=== PATIENT | female | born 1930 | race Caucasian/White ===

== ENCOUNTER 2016-10-06 21:48 | Emergency (ER) | payer MEDICARE, OTHER ==
[2016-10-06] MEDS ORDERED: Sodium Chloride 0.9% 10 ML Syringe FLUSH PRN (21:58)
--- NOTE | 2016-10-06 22:00 | EDM.PDOC ---
ED HPI GENERAL MEDICAL PROBLEM - General Chief Complaint: General Stated Complaint: [facility] Time Seen by Provider: 10/06/16 21:49 Source of Information: Reports: Patient History Limitations: Reports: No limitations - History of Present Illness INITIAL COMMENTS - FREE TEXT/NARRATIVE: Patient presents via the [place] ambulance service for evaluation and treatment of dizziness. Patient reports that she was sitting on the toilet. She said that she got up and felt extremely dizzy. She states that she did fall and hit her head. She did not pass out or lose consciousness. She reports that the dizziness has improved since this occurred but she still continues to have some dizziness. She denies any chest pain, shortness of breath, nausea, vomiting, diarrhea, melena, hematochezia, fevers, chills or cough. She is an 81mg aspirin daily. She denies any neck pain. Patient reports that she has been ill with flulike symptoms over the last week. She was seen by her primary care provider. She was negative for influenza. She reports that she has not been eating as much due to her symptoms. - Related Data Allergies Allergy/AdvReac Type Severity Reaction Status Date / Time No Known Allergies Allergy Verified 10/06/16 21:57 Home Meds: Home Meds Aspirin 81 mg PO DAILY 12/30/15 [History] Atenolol 50 mg PO DAILY 12/30/15 [History] Calcium Carbonate [Calcium] 600 mg PO DAILY 12/30/15 [History] Isosorbide Mononitrate [Imdur] 60 mg PO DAILY 12/30/15 [History] Multivitamin [Multivitamins] 1 each PO DAILY 12/30/15 [History] Omeprazole 20 mg PO DAILY 12/30/15 [History] Simvastatin [Zocor] 5 mg PO BEDTIME 12/30/15 [History] Triamterene/Hydrochlorothiazid [Triamterene-HCTZ 37.5-25 MG] 1 tab PO DAILY 05/06 [History] Allopurinol [Zyloprim] 100 mg PO DAILY #30 tablet 01/01/16 [Rx] Cephalexin [Keflex] 500 mg PO QID #20 cap 01/01/16 [Rx] Diltiazem [Cardizem] 60 mg PO Q12HR #60 tablet 01/01/16 [Rx] Saccharomyces Boulardii [Probiotic] 250 mg PO BID #14 capsule 01/01/16 [Rx] Past Medical History Cardiovascular History: Reports: Arrhythmia, High cholesterol, Hypertension Gastrointestinal History: Reports: GERD Genitourinary History: Reports: Chronic renal insuffiency Oncologic (Cancer) History: Reports: Other (see below) (skin) Other Oncologic History: skin cancer Dermatologic History: Reports: Other (see below) Other Dermatologic History: skin cancer - Past Surgical History HEENT Surgical History: Reports: Cataract surgery, Tonsillectomy Social & Family History - Family History Family Medical History: Unobtainable - Tobacco Use Smoking Status *Q: Never Smoker Second Hand Smoke Exposure: No - Recreational Drug Use Recreational Drug Use: No ED ROS GENERAL - Review of Systems Review Of Systems: See Below Constitutional: Reports: decreased appetite. Denies: fever Respiratory: Denies: Shortness of Breath, Cough Cardiovascular: Denies: Chest pain, Syncope GI/Abdominal: Denies: Abdominal pain, Diarrhea, Hematochezia, Melena, Nausea, Vomiting Musculoskeletal: Denies: neck pain Neurological: Reports: Dizziness. Denies: Headache, Syncope ED EXAM, GENERAL - Physical Exam Exam: See Below Exam Limited By: No limitations General Appearance: alert, WD/WN, no apparent distress Respiratory/Chest: no respiratory distress, lungs clear, normal breath sounds Cardiovascular: normal peripheral pulses, regular rate, rhythm, no murmur Peripheral Pulses: 2+: radial (L), radial (R) Neurological: alert, oriented, normal cognition Psychiatric: normal affect, normal mood Skin Exam: Warm, Dry, Normal color EKG INTERPRETATION EKG Date: 10/06/16 Time: 22:10 Rhythm: NSR Rate (beats/min): 59 [place]: LAD-left axis deviation P-wave: present QRS: normal ST-T: normal Comparison: no change EKG Interpretation Comments: NSR at 59 bpm. No acute changes. Reviewed by myself and Dr. Celis. Course - Vital Signs Last Recorded V/S: Last Vital Signs Temp 36.4 C 10/06/16 21:53 Pulse 60 10/07/16 02:23 Resp 16 10/07/16 02:23 BP 121/45 L 10/07/16 02:23 Pulse Ox 99 10/07/16 02:23 Orthostatic Blood Pressure [ 76/48 Standing] Orthostatic Blood Pressure [ 106/55 Sitting] Orthostatic Blood Pressure [ 120/51 Supine] - Orders/Labs/Meds Orders: Active Orders 24 hr Category Date Time Status EKG 12 Lead [EKG Documentation Completion] [RC] STAT Care 10/06/16 21:58 Active Orthostatic Vital Signs [RC] ASDIRECTED Care 10/06/16 21:58 Active Peripheral IV Care [RC] . DIRECTED Care 10/06/16 21:58 Active Chest 1V Frontal [CR] Stat Exams 10/06/16 21:58 Taken Head wo Cont [CT] Stat Exams 10/06/16 21:58 Taken Peripheral IV Insertion Adult [OM.PC] Routine Oth 10/06/16 21:58 Ordered Labs: Laboratory Tests 10/06/16 10/06/16 10/06/16 Range/Units 22:11 22:11 22:11 WBC 8.88 (3.98-10.04) K/mm3 RBC 3.38 L (3.98-5.22) M/mm3 Hgb 10.7 L (11.2-15.7) gm/L Hct 31.8 L (34.1-44.9) % MCV 94.1 (79.4-94.8) fl MCH 31.7 (25.6-32.2) pg MCHC 33.6 (32.2-35.5) g/dl RDW Std Deviation 41.5 (36.4-46.3) fL Plt Count 656 H (182-369) K/mm3 MPV 8.8 L (9.4-12.3) fl Neut % (Auto) 56.8 (34.0-71.1) % Lymph % (Auto) 27.3 (19.3-51.7) % [place] % (Auto) 13.4 H (4.7-12.5) % Eos % (Auto) 1.2 (0.7-5.8) Baso % (Auto) 0.2 (0.1-1.2) % Neut # 5.04 (1.56-6.13) K/mm3 Lymph # 2.42 (1.18-3.74) K/mm3 [place] # 1.19 H (0.24-0.36) K/mm3 Eos # 0.11 (0.04-0.36) K/mm3 Baso # 0.02 (0.01-0.08) K/mm3 Manual Slide Review Abnormal smear Sodium 135 L (136-145) mEq/L Potassium 3.7 (3.5-5.1) mEq/L Chloride 97 L (98-107) mEq/L Carbon Dioxide 29 (21-32) mEq/L Anion Gap 12.7 (5-15) BUN 26 H (7-18) mg/dL Creatinine 1.6 H (0.55-1.02) mg/dL Est Cr Clr Drug Dosing 21.79 mL/min Estimated GFR (MDRD) 31 (>60) mL/min BUN/Creatinine Ratio 16.3 (14-18) Glucose 125 H (83-115) mg/dL Calcium 8.8 (8.5-10.1) mg/dL Total Bilirubin 0.5 (0.2-1.0) mg/dL AST 36 (15-37) U/L ALT 45 (14-59) U/L Alkaline Phosphatase 252 H (46-116) U/L Troponin I < 0.017 (0.00-0.056) ng/mL B-Natriuretic Peptide 91 (0-100) pg/mL Total Protein 6.8 (6.4-8.2) g/dl Albumin 2.5 L (3.4-5.0) g/dl Globulin 4.3 gm/dL Albumin/Globulin Ratio 0.6 L (1-2) Urine Color (Yellow) Urine Appearance (Clear) Urine pH (5.0-8.0) Ur Specific [place] (1.005-1.030) Urine Protein (Negative) Urine Glucose (UA) (Negative) Urine Ketones (Negative) Urine Occult Blood (Negative) Urine Nitrite (Negative) Urine Bilirubin (Negative) Urine Urobilinogen (0.2-1.0) Ur Leukocyte Esterase (Negative) Urine RBC (0-5) /hpf Urine WBC (0-5) /hpf Urine WBC Clumps (NOT SEEN) /hpf Ur Epithelial Cells (0-5) /hpf Ur Transition Epith Cell (0-5) Ur Renal Epithelial Cell (0-5) /hpf Urine Bacteria (FEW) /hpf Hyaline Casts (0-5) /lpf Urine Mucus (FEW) /hpf Urine Yeast (NOT SEEN) // Range/Units 23:21 WBC (3.98-10.04) K/mm3 RBC (3.98-5.22) M/mm3 Hgb (11.2-15.7) gm/L Hct (34.1-44.9) % MCV (79.4-94.8) fl MCH (25.6-32.2) pg MCHC (32.2-35.5) g/dl RDW Std Deviation (36.4-46.3) fL Plt Count (182-369) K/mm3 MPV (9.4-12.3) fl Neut % (Auto) (34.0-71.1) % Lymph % (Auto) (19.3-51.7) % [place] % (Auto) (4.7-12.5) % Eos % (Auto) (0.7-5.8) Baso % (Auto) (0.1-1.2) % Neut # (1.56-6.13) K/mm3 Lymph # (1.18-3.74) K/mm3 [place] # (0.24-0.36) K/mm3 Eos # (0.04-0.36) K/mm3 Baso # (0.01-0.08) K/mm3 Manual Slide Review Sodium (136-145) mEq/L Potassium (3.5-5.1) mEq/L Chloride (98-107) mEq/L Carbon Dioxide (21-32) mEq/L Anion Gap (5-15) BUN (7-18) mg/dL Creatinine (0.55-1.02) mg/dL Est Cr Clr Drug Dosing mL/min Estimated GFR (MDRD) (>60) mL/min BUN/Creatinine Ratio (14-18) Glucose (83-115) mg/dL Calcium (8.5-10.1) mg/dL Total Bilirubin (0.2-1.0) mg/dL AST (15-37) U/L ALT (14-59) U/L Alkaline Phosphatase (46-116) U/L Troponin I (0.00-0.056) ng/mL B-Natriuretic Peptide (0-100) pg/mL Total Protein (6.4-8.2) g/dl Albumin (3.4-5.0) g/dl Globulin gm/dL Albumin/Globulin Ratio (1-2) Urine Color Yellow (Yellow) Urine Appearance Clear (Clear) Urine pH 6.0 (5.0-8.0) Ur Specific [place] 1.015 (1.005-1.030) Urine Protein Negative (Negative) Urine Glucose (UA) Negative (Negative) Urine Ketones Negative (Negative) Urine Occult Blood Negative (Negative) Urine Nitrite Negative (Negative) Urine Bilirubin Negative (Negative) Urine Urobilinogen 0.2 (0.2-1.0) Ur Leukocyte Esterase Negative (Negative) Urine RBC 0-5 (0-5) /hpf Urine WBC 0-5 (0-5) /hpf Urine WBC Clumps Not seen (NOT SEEN) /hpf Ur Epithelial Cells 10-20 H (0-5) /hpf Ur Transition Epith Cell 0-5 (0-5) Ur Renal Epithelial Cell 0-5 (0-5) /hpf Urine Bacteria Rare (FEW) /hpf Hyaline Casts 0-5 (0-5) /lpf Urine Mucus Not seen (FEW) /hpf Urine Yeast Not seen (NOT SEEN) Meds: Medications Discontinued Medications Generic Name Dose Route Start Last Admin Trade Name Freq PRN Reason Stop Dose Admin Sodium Chloride 500 mls @ 999 mls/hr 10/06/16 22:01 10/06/16 22:47 Normal Saline IV 10/06/16 22:31 999 mls/hr ONETIME ONE Administration Sodium Chloride 10 ml 10/06/16 21:58 10/06/16 22:48 Saline Flush FLUSH 10 ml ASDIRECTED PRN Administration Keep Vein Open - Radiology Interpretation Free Text/Narrative:: head CT without contrast impression per [facility]: No acute findings. Chest 1 view shows no acute intrathoracic process. - Re-Assessments/Exams Free Text/Narrative Re-Assessment/Exam: 10/07/16 01:00 Labs returned. WBC is 8.88, hgb is 10/7 and plts are 656 Sodium i8s 135, potassium is 3.7 and chloride is 97. Glucose is 125 AST is 36, ALt is 45 and alk phos is 252 Trop is within normal limits at <0.017 BNP is 91 Ua is negative for blood, leuks, nitrites, glucose or ketones. I reviewed the labs, ekg and imaging results with the patient. I feel she was likely orthostatic which caused the dizziness. I will have her follow-up with PCP this week. Patient is feeling well and is anxious to go home. Will discharge home at this time. Discharge instructions as documented. Departure - Departure Time of Disposition: 01:03 Disposition: Home, Self-Care 01 Condition: good Clinical Impression: Dehydration Instructions: Dehydration, Elderly, [id number] Referrals: Trinity Cisneros MD [Primary Care Provider] - Forms: ED Department Discharge Additional Instructions: Followup with Dr. Cisneros this week. Drink plenty of fluids. [place] diet tomorrow. Recommendations the bland to include crackers, breda, toast , rice, bananas, supine, et cetera. may advance to a normal diet as tolerated.- I recommend Small frequent meals. Please return to the ER should your symptoms change or worsen. - My Orders Last 24 Hours: My Active Orders 10/06/16 21:58 EKG 12 Lead [EKG Documentation Completion] [RC] STAT Orthostatic Vital Signs [RC] ASDIRECTED Peripheral IV Care [RC] . DIRECTED Chest 1V Frontal [CR] Stat Head wo Cont [CT] Stat Peripheral IV Insertion Adult [OM.PC] Routine - Assessment/Plan Last 24 Hours: My Active Orders 10/06/16 21:58 EKG 12 Lead [EKG Documentation Completion] [RC] STAT Orthostatic Vital Signs [RC] ASDIRECTED Peripheral IV Care [RC] . DIRECTED Chest 1V Frontal [CR] Stat Head wo Cont [CT] Stat Peripheral IV Insertion Adult [OM.PC] Routine
[2016-10-06] MEDS ORDERED: Sodium Chloride 0.9% 500 ML IV ONE (22:01)
[2016-10-07 02:25] VITALS: BP 121/45
--- NOTE | 2016-10-08 07:59 | CR ---
Chest: Portable view of the chest was obtained. Comparison: Previous chest x-ray of 11/17/11. Heart size and mediastinum are normal. Lungs are clear. Bony structures are grossly intact. Impression: 1. Nothing acute is identified on portable chest x-ray. Diagnostic code #1
--- NOTE | 2016-10-08 07:59 | CT ---
Head CT Technique: Multiple axial sections through the brain were obtained. Intravenous contrast was not utilized. Comparison: Previous head CT study of 12/30/15 is available. Findings: Ventricles along with basal cisterns and sulci over the convexities are mildly prominent. Minimal diminished density noted within the periventricular white matter compatible with small vessel ischemic demyelination change. No other abnormal parenchymal densities are seen. No evidence of intracranial hemorrhage. No midline shift or mass effect is seen. Bone window settings were reviewed which show the visualized paranasal sinuses and mastoid sinuses to appear clear. Middle ear cavities are clear. No acute calvarial abnormality is seen. Impression: 1. Mild senescent change as noted above. No acute intracranial abnormality is identified. No significant change seen from prior head CT exam. Diagnostic code #2 Agree with preliminary report issued by [facility] (preliminary [facility] report dictated on 10/07/16, 1:06 AM Central Time)
== END 2016-10-07 01:30 | disposition home or self-care (01) ==
LOC: JD.ED 21:48
DX: E86.0 Dehydration (principal); I49.9 Cardiac arrhythmia, unspecified; E78.00 Pure hypercholesterolemia, unspecified; K21.9 Gastro-esophageal reflux disease without esophagitis; I12.9 Hypertensive chronic kidney disease with stage 1 through stage 4 chronic kidney disease, or unspecified chronic kidney disease; N18.9 Chronic kidney disease, unspecified; Z85.828 Personal history of other malignant neoplasm of skin; Z79.82 Long term (current) use of aspirin; Z79.899 Other long term (current) drug therapy
CPT/HCPCS: 36415; 70450; 71010; 80053; 81001; 83880; 84484; 85025; 93005; 96360; 96361; 99285; J7040; J7050; 99284

== ENCOUNTER 2016-10-09 09:04 | Inpatient (IN) | payer MEDICARE, OTHER ==
[2016-10-09] MEDS ORDERED: Metoclopramide 10 MG/2 ML SDV IVPUSH ONE (09:44)
[2016-10-09] MEDS ORDERED: Sodium Chloride 0.9% 10 ML Syringe FLUSH PRN (09:44)
[2016-10-09] MEDS ORDERED: Sodium Chloride 0.9% 1,000 ML IV SCH (09:45)
--- NOTE | 2016-10-09 10:56 | EDM.PDOC ---
ED HPI DIZZINESS - General Chief Complaint: Syncope Stated Complaint: [facility] Time Seen by Provider: 10/09/16 09:24 Source of Information: Reports: Patient, EMS, Family Exam Limitations: Reports: No limitations - History of Present Illness INITIAL COMMENTS - FREE TEXT/NARRATIVE: The patient presents with dizziness, nausea and vomiting. The patient was her on Saturday for syncope. Her work up looked good. This morning she could not get up out of bed because she was dizzy. She says everything was spinning and she vomited once before she arrived. She has no pain such as headache, chest pain, or abdominal pain. She was more confused then normal this morning. She was a confused about the date. She says she cannot lift her head up off of the pillow because she will get so dizzy. She has generalized weakness. She has no dysuria. Timing/Duration: Reports: Day(s): Baseline Function: Reports: ambulatory Quality: Reports: spinning Severity: severe Improves With: Reports: laying down, stationary position Worsens With: Reports: sitting Context, Dizziness: Denies: recent infection, recent trauma, new medications Associated Symptoms: Denies: hearing loss - Related Data Allergies/ADRs: Allergies Allergy/AdvReac Type Severity Reaction Status Date / Time atorvastatin [From Lipitor] Allergy Cannot Verified 10/09/16 09:20 Remember lisinopril Allergy Cannot Verified 10/09/16 09:20 Remember Home Meds: Home Meds Aspirin 81 mg PO DAILY 12/30/15 [History] Atenolol 50 mg PO DAILY 12/30/15 [History] Isosorbide Mononitrate [Imdur] 60 mg PO DAILY 12/30/15 [History] Omeprazole 20 mg PO DAILY 12/30/15 [History] Simvastatin [Zocor] 5 mg PO BEDTIME 12/30/15 [History] Triamterene/Hydrochlorothiazid [Triamterene-HCTZ 37.5-25 MG] 25 - 37.5 mg PO DAILY 12/30/15 [History] Allopurinol [Zyloprim] 100 mg PO DAILY #30 tablet 01/01/16 [Rx] Diltiazem [Cardizem] 60 mg PO Q12HR #60 tablet 01/01/16 [Rx] Acetaminophen 500 - 1,000 mg PO Q4H PRN 10/09/16 [History] Calcium Carb/D3/Magnesium/Zinc [Adelfo Mag Zinc + D3] 1 tab PO DAILY 10/09/16 [ History] Calcium Carbonate/Vitamin D3 [Calcium 600 + Vit D 400 Softgl] 2 tab PO DAILY [History] Cranberry Conc/Ascorbic Acid [Cranberry Urinary Comfort Sfgl] 1 tab PO DAILY [History] Fluticasone Propionate [Flovent HFA 44 MCG] 2 puff INH DAILY PRN 10/09/16 [ History] Multivits,Th w-Fe,Other Min [Complete Multivitamin] 1 tab PO DAILY 10/09/16 [ History] Potassium Chloride [Klor-Con Sprinkle] 10 meq PO DAILY 10/09/16 [History] Past Medical History Cardiovascular History: Reports: Arrhythmia, High cholesterol, Hypertension Gastrointestinal History: Reports: GERD Genitourinary History: Reports: Chronic renal insuffiency [employer] History: Reports: Musculoskeletal History: Reports: Fracture Neurological History: Reports: Headaches, chronic, Other (see below) Other Neuro History: many yrs ago had H/A's. Endocrine/Metabolic History: Reports: Other (see below) Other Endocrine/Metabolic History: daughter states that pt is "pre-diabetic." Oncologic (Cancer) History: Reports: Basal cell carcinoma, Other (see below) Other Oncologic History: skin cancer Dermatologic History: Reports: Other (see below) Other Dermatologic History: skin cancer - Infectious Disease History Infectious Disease History: Reports: Measles - Past Surgical History HEENT Surgical History: Reports: Cataract surgery, Tonsillectomy Social & Family History - Family History Family Medical History: Unobtainable - Tobacco Use Smoking Status *Q: Never Smoker Second Hand Smoke Exposure: No - Caffeine Use Caffeine Use: Reports: Soda - Recreational Drug Use Recreational Drug Use: No ED ROS GENERAL - Review of Systems Review Of Systems: See Below Constitutional: Reports: no symptoms HEENT: Reports: No symptoms Respiratory: Reports: No Symptoms Cardiovascular: Reports: No symptoms Endocrine: Reports: no symptoms GI/Abdominal: Reports: Nausea, Vomiting. Denies: Abdominal pain : Reports: no symptoms Musculoskeletal: Reports: no symptoms Skin: Reports: no symptoms Neurological: Reports: Dizziness ED EXAM, DIZZINESS - Physical Exam Exam: See Below Exam Limited By: No limitations General Appearance: alert, no apparent distress Eye Exam: right eye: nystagmus, bilateral eye: EOMI, PERRL Nystagmus: worsens with head to R Ears: normal external exam Nose: normal inspection, nasal flaring Head Exam: atraumatic, normocephalic Vertigo: worsens with head to R Neck: normal inspection Respiratory/Chest: no respiratory distress, lungs clear, normal breath sounds Cardiovascular: regular rate, rhythm, no edema, no murmur GI/Abdominal: soft, non tender, no organomegaly, no mass Neurological: alert, normal mood/affect, no motor/sensory deficits, oriented x 3 , other (Nystagmus to the right) Extremities: normal inspection EKG INTERPRETATION EKG Date: 10/09/16 Time: 09:57 Rhythm: NSR Rate (beats/min): 66 [place]: LAD-left axis deviation P-wave: present QRS: normal ST-T: other (Flattened T waves in the anterior leads) QT: normal Course - Vital Signs Last Recorded V/S: Last Vital Signs Temp 97.2 F 10/09/16 09:05 Pulse 68 10/09/16 09:05 Resp 13 10/09/16 09:05 BP 151/54 H 10/09/16 09:05 Pulse Ox 100 10/09/16 09:05 - Orders/Labs/Meds Orders: Active Orders 24 hr Category Date Time Status Cardiac Monitoring [RC] . DIRECTED Care 10/09/16 09:44 Active EKG Documentation Completion [RC] STAT Care 10/09/16 09:45 Active Peripheral IV Care [RC] . DIRECTED Care 10/09/16 09:44 Active Sodium Chloride 0.9% [Normal Saline] 1,000 ml Med 10/09/16 09:45 Active IV ASDIRECTED Sodium Chloride 0.9% [Saline Flush] Med 10/09/16 09:44 Active 10 ml FLUSH ASDIRECTED PRN ED Antiemetic Medication Reflex [OM.PC] Stat Oth 10/09/16 09:45 Ordered Peripheral IV Insertion Adult [OM.PC] Stat Oth 10/09/16 09:44 Ordered Medication Orders Sodium Chloride (Normal Saline) 1,000 mls @ 150 mls/hr IV ASDIRECTED ARJUN Last Admin: 10/09/16 10:02 Dose: 150 mls/hr Sodium Chloride (Saline Flush) 10 ml FLUSH ASDIRECTED PRN PRN Reason: Keep Vein Open Last Admin: 10/09/16 10:02 Dose: 10 ml Labs: Laboratory Tests 10/09/16 10/09/16 10/09/16 Range/Units 09:57 10:25 10:32 WBC 7.83 (3.98-10.04) K/mm3 RBC 3.44 L (3.98-5.22) M/mm3 Hgb 10.9 L (11.2-15.7) gm/L Hct 32.6 L (34.1-44.9) % MCV 94.8 (79.4-94.8) fl MCH 31.7 (25.6-32.2) pg MCHC 33.4 (32.2-35.5) g/dl RDW Std Deviation 43.1 (36.4-46.3) fL Plt Count 731 H (182-369) K/mm3 MPV 9.1 L (9.4-12.3) fl Neut % (Auto) 66.9 (34.0-71.1) % Lymph % (Auto) 22.1 (19.3-51.7) % [place] % (Auto) 9.2 (4.7-12.5) % Eos % (Auto) 0.8 (0.7-5.8) Baso % (Auto) 0.5 (0.1-1.2) % Neut # 5.24 (1.56-6.13) K/mm3 Lymph # 1.73 (1.18-3.74) K/mm3 [place] # 0.72 H (0.24-0.36) K/mm3 Eos # 0.06 (0.04-0.36) K/mm3 Baso # 0.04 (0.01-0.08) K/mm3 Manual Slide Review Abnormal smear Sodium 136 (136-145) mEq/L Potassium 4.3 (3.5-5.1) mEq/L Chloride 101 (98-107) mEq/L Carbon Dioxide 25 (21-32) mEq/L Anion Gap 14.3 (5-15) BUN 22 H (7-18) mg/dL Creatinine 1.4 H (0.55-1.02) mg/dL Est Cr Clr Drug Dosing 25.95 mL/min Estimated GFR (MDRD) 36 (>60) mL/min BUN/Creatinine Ratio 15.7 (14-18) Glucose 117 H (83-115) mg/dL Calcium 9.0 (8.5-10.1) mg/dL Total Bilirubin 0.4 (0.2-1.0) mg/dL AST 42 H (15-37) U/L ALT 35 (14-59) U/L Alkaline Phosphatase 214 H (46-116) U/L Troponin I < 0.017 (0.00-0.056) ng/mL Total Protein 6.6 (6.4-8.2) g/dl Albumin 2.6 L (3.4-5.0) g/dl Globulin 4.0 gm/dL Albumin/Globulin Ratio 0.7 L (1-2) Urine Color Yellow (Yellow) Urine Appearance Clear (Clear) Urine pH 7.5 (5.0-8.0) Ur Specific [place] 1.020 (1.005-1.030) Urine Protein Negative (Negative) Urine Glucose (UA) Negative (Negative) Urine Ketones Negative (Negative) Urine Occult Blood Negative (Negative) Urine Nitrite Negative (Negative) Urine Bilirubin Negative (Negative) Urine Urobilinogen 0.2 (0.2-1.0) Ur Leukocyte Esterase Negative (Negative) Urine RBC 0-5 (0-5) /hpf Urine WBC Not seen (0-5) /hpf Ur Epithelial Cells 0-5 (0-5) /hpf Urine Bacteria Not seen (FEW) /hpf Urine Mucus Not seen (FEW) /hpf Meds: Medications Generic Name Dose Route Start Last Admin Trade Name Freq PRN Reason Stop Dose Admin Sodium Chloride 1,000 mls @ 150 mls/hr 10/09/16 09:45 10/09/16 10:02 Normal Saline IV 150 mls/hr ASDIRECTED ARJUN Administration Sodium Chloride 10 ml 10/09/16 09:44 10/09/16 10:02 Saline Flush FLUSH 10 ml ASDIRECTED PRN Administration Keep Vein Open Discontinued Medications Generic Name Dose Route Start Last Admin Trade Name Freq PRN Reason Stop Dose Admin Meclizine HCl 25 mg 10/09/16 09:46 10/09/16 10:33 Antivert PO 10/09/16 09:47 25 mg ONETIME ONE Administration Metoclopramide HCl 10 mg 10/09/16 09:44 10/09/16 10:00 Reglan IVPUSH 10/09/16 09:45 10 mg ONETIME ONE Administration - Re-Assessments/Exams Free Text/Narrative Re-Assessment/Exam: 10/09/16 11:01 I ordered an IV NS at 200mL/hr, reglan 10mg IV, antivert 50mg by mouth, labs, EKG, and CT of her head. Her EKG shows a NSR with no acute changes. 10/09/16 13:[address] looks good. Her labs look good. She feels a little better. I feel she needs to be admitted. I called Dr De León and he agreed to the admission. Departure - Departure Time of Disposition: 13:45 Disposition: Admitted As Inpatient 66 Condition: fair Clinical Impression: Vertigo, Generalized weakness, Renal insufficiency Nausea and vomiting Qualifiers: Vomiting type: unspecified Vomiting Intractability: non-intractable Qualified Code(s): R11.2 - Nausea with vomiting, unspecified - My Orders Last 24 Hours: My Active Orders 10/09/16 09:44 Cardiac Monitoring [RC] . DIRECTED Peripheral IV Care [RC] . DIRECTED Sodium Chloride 0.9% [Saline Flush] 10 ml FLUSH ASDIRECTED PRN Peripheral IV Insertion Adult [OM.PC] Stat 10/09/16 09:45 EKG Documentation Completion [RC] STAT Sodium Chloride 0.9% [Normal Saline] 1,000 ml IV ASDIRECTED ED Antiemetic Medication Reflex [OM.PC] Stat - Assessment/Plan Last 24 Hours: My Active Orders 10/09/16 09:44 Cardiac Monitoring [RC] . DIRECTED Peripheral IV Care [RC] . DIRECTED Sodium Chloride 0.9% [Saline Flush] 10 ml FLUSH ASDIRECTED PRN Peripheral IV Insertion Adult [OM.PC] Stat 10/09/16 09:45 EKG Documentation Completion [RC] STAT Sodium Chloride 0.9% [Normal Saline] 1,000 ml IV ASDIRECTED ED Antiemetic Medication Reflex [OM.PC] Stat
--- NOTE | 2016-10-09 11:07 | CT ---
Head CT Technique: Multiple axial sections through the brain were obtained. Intravenous contrast was not utilized. Comparison: Previous head CT study of 10/06/16. Findings: Ventricles along with basal cisterns and sulci over the convexities are mildly prominent. Mild diminished density noted within the periventricular white matter compatible with small vessel ischemic demyelination change. No other abnormal parenchymal densities are seen. No evidence of intracranial hemorrhage. No midline shift or mass effect is seen. Bone window settings were reviewed which show no significant mucosal thickening within the visualized paranasal sinuses. Visualized mastoid sinuses are clear. Middle ear cavities are clear. No acute calvarial abnormality is appreciated. Impression: 1. Senescent change as described above. 2. Nothing acute identified on noncontrast head CT study. No significant change from prior head CT study. Diagnostic code #2
--- NOTE | 2016-10-09 14:32 | PCM.HP ---
H&P History of Present Illness - General Date of Service: 10/09/16 Admit Problem/Dx: Admission Diagnosis/Problem Admission Diagnosis/Problem Vertigo Source of Information: Patient, Family, Old records, Provider History Limitations: Reports: No limitations - History of Present Illness Initial Comments - Free Text/Narative: This is an 86 yo elderly white female with past medical hx of Arrhythmia, HLD, HTN, GERD, CKD Stage 3, Chronic Headaches and Pre-diabetes who comes in with complaints of dizziness (room spinning) associated with nausea , vomiting, and imbalance. She was initially seen on Saturday for syncopal episode with benign work up. Patient symptom started this am and could not get out of bed. She also could not lift her head off the pillow due to symptomatology. Patient reports no previous hx in the past. She reports no new ENT issues. She denies being diabetic. She further denies any recent Viral Illness or systemic infection. Her initial work up in ED shows a CBC remarkable for Hgb 10.9. Her chemistry is remarkable for BUN 22, Cr 1.4, BS 117, AST 42, Alk Phos 214, and Albumin 2.6. Her Head CT scan shows no acute abnormal findings. EKG is benign. Patient was referred to me for Vertigo management. She is full code. - Related Data Allergies/Adverse Reactions: Allergies Allergy/AdvReac Type Severity Reaction Status Date / Time atorvastatin [From Lipitor] Allergy Cannot Verified 10/09/16 09:20 Remember lisinopril Allergy Cannot Verified 10/09/16 09:20 Remember Home Medications: Home Meds Aspirin 81 mg PO DAILY 12/30/15 [History] Atenolol 50 mg PO DAILY 12/30/15 [History] Isosorbide Mononitrate [Imdur] 60 mg PO DAILY 12/30/15 [History] Omeprazole 20 mg PO DAILY 12/30/15 [History] Simvastatin [Zocor] 5 mg PO BEDTIME 12/30/15 [History] Triamterene/Hydrochlorothiazid [Triamterene-HCTZ 37.5-25 MG] 1 tab PO DAILY 05/06 [History] Allopurinol [Zyloprim] 100 mg PO DAILY #30 tablet 01/01/16 [Rx] Diltiazem [Cardizem] 60 mg PO Q12HR #60 tablet 01/01/16 [Rx] Acetaminophen 500 mg PO Q4H PRN 10/09/16 [History] Calcium Carb/D3/Magnesium/Zinc [Adelfo Mag Zinc + D3] 1 tab PO DAILY 10/09/16 [ History] Cranberry Conc/Ascorbic Acid [Cranberry Urinary Comfort Sfgl] 1 tab PO DAILY [History] Fluticasone Propionate [Flovent HFA 44 MCG] 2 puff INH DAILY PRN 10/09/16 [ History] Multivits,Th w-Fe,Other Min [Complete Multivitamin] 1 tab PO DAILY 10/09/16 [ History] Potassium Chloride [Klor-Con Sprinkle] 10 meq PO DAILY 10/09/16 [History] Past Medical History Cardiovascular History: Reports: Arrhythmia, High cholesterol, Hypertension Gastrointestinal History: Reports: GERD Genitourinary History: Reports: Chronic renal insuffiency [employer] History: Reports: Musculoskeletal History: Reports: Fracture Neurological History: Reports: Headaches, chronic, Other (see below) Other Neuro History: many yrs ago had H/A's. Endocrine/Metabolic History: Reports: Other (see below) Other Endocrine/Metabolic History: daughter states that pt is "pre-diabetic." Oncologic (Cancer) History: Reports: Basal cell carcinoma, Other (see below) Other Oncologic History: skin cancer Dermatologic History: Reports: Other (see below) Other Dermatologic History: skin cancer - Infectious Disease History Infectious Disease History: Reports: Measles - Past Surgical History HEENT Surgical History: Reports: Cataract surgery, Tonsillectomy Social & Family History - Family History Family Medical History: Unobtainable - Tobacco Use Smoking Status *Q: Never Smoker Second Hand Smoke Exposure: No - Caffeine Use Caffeine Use: Reports: Soda - Recreational Drug Use Recreational Drug Use: No H&P Review of Systems - Review of Systems: Review Of Systems: See Below General: Denies: fever, chills, malaise, weakness, fatigue HEENT: Reports: no symptoms Pulmonary: Denies: Shortness of Breath Cardiovascular: Denies: chest pain, palpitations, dyspnea on exertion, lightheadedness Gastrointestinal: Reports: Nausea, Vomiting. Denies: Abdominal pain Genitourinary: Reports: no symptoms Musculoskeletal: Reports: no symptoms Skin: Denies: jaundice, erythema, wound Psychiatric: Denies: confusion, depression, anxiety, hallucinations, suicidal ideation Neurological: Reports: Dizziness Hematologic/Lymphatic: Reports: no symptoms Immunologic: Reports: no symptoms Exam - Exam Exam: See Below - Vital Signs Vital Signs: Last Vital Signs Temp 36.2 C 10/09/16 09:05 Pulse 68 10/09/16 09:05 Resp 13 10/09/16 09:05 BP 151/54 H 10/09/16 09:05 Pulse Ox 100 10/09/16 09:05 Weight: 72.121 kg - Exam General: alert, oriented, cooperative, mild distress HEENT: Conjunctiva clear, Hearing intact, Mucosa moist & pink, Nares patent, Normal nasal septum, Posterior pharynx clear, Other (nystagmus), PERRLA. No: EOMI Neck: supple, trachea midline, 2+ carotid pulse wo bruit, full range of motion Lungs: Clear to auscultation, Normal respiratory effort, Decreased breath sounds Cardiovascular: regular rate, regular rhythm, normal S1 Abdomen: normal bowel sounds, soft. No: organomegaly (Female) Exam: Deferred Rectal (Female) Exam: Deferred Back Exam: normal inspection, decreased range of motion Extremities: normal inspection, normal pulses. No: clubbing, cyanosis, calf tenderness, edema Peripheral Pulses: 2+: dorsalis pedis (L), dorsalis pedis (R) Skin: warm, dry, intact Neuro Extensive - Mental Status: oriented x3, normal cognition, memory intact Neuro Extensive - Motor, Sensory, Reflexes: CN II-XII intact, normal gait Psychiatric: alert, normal affect, normal mood - Patient Data Result Diagrams: 10/09/16 09:57 10/09/16 10:32 EKG INTERPRETATION EKG Date: 10/09/16 Time: 09:57 Rhythm: NSR Rate (beats/min): 66 [place]: LAD-left axis deviation P-wave: present QRS: normal ST-T: other (flattened T waves in anterior leads) QT: normal *Q Meaningful Use (ADM) - VTE *Q VTE Criteria *Q: - Stroke *Q Stroke Criteria *Q: - AMI *Q AMI Criteria *Q: Problem List Initiated/Reviewed/Updated: Yes Orders Last 24hrs: Active Orders 24 hr Category Date Time Status Patient Status [ADT] Routine ADT 10/09/16 13:27 Active Medication Orders Sodium Chloride (Normal Saline) 1,000 mls @ 150 mls/hr IV ASDIRECTED ARJUN Last Admin: 10/09/16 10:02 Dose: 150 mls/hr Sodium Chloride (Saline Flush) 10 ml FLUSH ASDIRECTED PRN PRN Reason: Keep Vein Open Last Admin: 10/09/16 10:02 Dose: 10 ml Assessment/Plan Comment:: Assessment/Plan: Acute: Vertigo - Head CT scan: negative for acute abnormal findings - EKG on admission: Sinus Rhythm with a Rate of 66 bpm - Orthostatic negative - R/o Cardiac Dysrrhythmia-telemetry - No recent sinus, oral or ear infection - No acute hearing issues - No hx/o Migraine - Negative dizziness with abrupt head movement or change in position - Lateral Nystagmus - Adequate IV hydration and PRN medications - PT/OT for Vestibular treatment S/p Nausea and Vomiting - PRN anti-emesis Chronic: Hx.o Arrhythmia HLD HTN GERD CKD Stage 3 Chronic POON's Pre-Diabetic Plan: Admit to Obs with Tele Routine AM labs Resume home meds PRN Meds for symptomatic control Code status: 1
[2016-10-09] MEDS ORDERED: Fluticasone Propionate 44 MCG/Puff 10.6 GM Inhaler INH PRN (14:33)
[2016-10-09] MEDS ORDERED: Metoprolol Tartrate 5 MG/5 ML SDV IVPUSH PRN (14:33)
[2016-10-09] MEDS ORDERED: hydrALAZINE 20 MG/ML SDV IVPUSH PRN (14:33)
[2016-10-09] MEDS ORDERED: Acetaminophen/HYDROcodone 325-5 MG Tab PO PRN (14:36)
[2016-10-09] MEDS ORDERED: Ondansetron 4 MG/2 ML SDV IV PRN (14:36)
[2016-10-09] MEDS ORDERED: HYDROmorphone 0.5 MG/0.5 ML Syringe IVPUSH PRN (14:36)
[2016-10-09] MEDS ORDERED: Albuterol/Ipratropium 3.0-0.5 MG/3 ML Neb Soln NEB PRN (14:36)
[2016-10-09] MEDS ORDERED: Polyethylene Glycol 3350 Powder 17 GM Packet PO PRN (14:36)
[2016-10-09] MEDS ORDERED: Promethazine 12.5 MG in Sodium Chloride 0.9% 50 ML IV PRN (14:36)
[2016-10-09] MEDS ORDERED: Acetaminophen 325 MG Tab PO PRN (14:36)
[2016-10-09] MEDS ORDERED: Bisacodyl 5 MG Tab PO PRN (14:36)
[2016-10-09] MEDS ORDERED: LORazepam 2 MG/ML MDV IV PRN (14:36)
[2016-10-09] MEDS: Atenolol 50 MG Tab PO SCH (16:14)
[2016-10-09] MEDS: Multivitamins,Therapeutic Tab PO SCH (16:14)
[2016-10-09] MEDS: Allopurinol 100 MG Tab PO SCH (16:14)
[2016-10-09] MEDS: Aspirin 81 MG Tab.Chew PO SCH (16:14)
[2016-10-09] MEDS: Calcium Carbonate/Vitamin D3 1500 MG-200 Units Tab PO SCH (16:14)
[2016-10-09] MEDS: Hydrochlorothiazide/Triamterene 25-37.5 MG Cap PO SCH (16:16)
[2016-10-09] MEDS: Potassium Chloride 10 MEQ Tab.ER PO SCH (16:16)
[2016-10-09] MEDS: Isosorbide Mononitrate 60 MG Tab.ER PO SCH (16:16)
[2016-10-09] MEDS: Pantoprazole 40 MG Tab.CR PO SCH (16:16)
[2016-10-09] MEDS ORDERED: Temazepam 7.5 MG Cap PO PRN (21:00)
[2016-10-09] MEDS: Simvastatin 10 MG Tab PO SCH (21:14)
[2016-10-10] MEDS: Pantoprazole 40 MG Tab.CR PO SCH (06:26)
[2016-10-10] MEDS: Isosorbide Mononitrate 60 MG Tab.ER PO SCH (08:21)
[2016-10-10] MEDS: Multivitamins,Therapeutic Tab PO SCH (08:21)
[2016-10-10] MEDS: Potassium Chloride 10 MEQ Tab.ER PO SCH (08:21)
[2016-10-10] MEDS: Calcium Carbonate/Vitamin D3 1500 MG-200 Units Tab PO SCH (08:21)
[2016-10-10] MEDS: Aspirin 81 MG Tab.Chew PO SCH (08:21)
[2016-10-10] MEDS: Allopurinol 100 MG Tab PO SCH (08:21)
[2016-10-10] MEDS: Atenolol 50 MG Tab PO SCH (08:23)
[2016-10-10] MEDS: Hydrochlorothiazide/Triamterene 25-37.5 MG Cap PO SCH (08:23)
[2016-10-10] MEDS: ZINC PO SCH (08:35)
[2016-10-10] MEDS: D3 PO SCH (08:35)
[2016-10-10] MEDS: CRANBERRY PO SCH (08:35)
[2016-10-10] MEDS: MAGNESIUM PO SCH (08:35)
[2016-10-10] MEDS: ASCORBIC ACID PO SCH (08:35)
[2016-10-10] MEDS: CALCIUM CARB PO SCH (08:35)
[2016-10-10] MEDS ORDERED: Magnesium Sulfate/Water 2 GM in Premix Bag 1 BAG IV ONE (08:45)
--- NOTE | 2016-10-10 17:37 | PCM.PN ---
- General Info Date of Service: 10/10/16 Functional Status: Reports: tolerating diet, ambulating, urinating - Review of Systems General: Reports: Weakness (DECREASED) HEENT: Reports: no symptoms Pulmonary: Reports: no symptoms Cardiovascular: Reports: No Symptoms Gastrointestinal: Reports: No symptoms Genitourinary: Reports: no symptoms Musculoskeletal: Reports: no symptoms Skin: Reports: no symptoms Neurological: Reports: Dizziness (NONE) Psychiatric: Reports: no symptoms - Patient Data Vitals - most recent: Last Vital Signs Temp 36.4 C 10/10/16 16:36 Pulse 58 L 10/10/16 16:36 Resp 16 10/10/16 16:36 BP 138/59 L 10/10/16 16:36 Pulse Ox 97 10/10/16 16:36 Weight - most recent: 71.668 kg I&O - last 24 hours: Intake & Output 10/10/16 10/10/16 10/10/16 06:59 14:59 22:59 Intake Total 850 600 360 Output Total 500 350 Balance 350 250 360 Lab Results last 24 hrs: Laboratory Results - last 24 hr 10/10/16 10/10/16 10/10/16 Range/Units 05:40 05:40 05:40 WBC 6.90 (3.98-10.04) K/mm3 RBC 3.09 L (3.98-5.22) M/mm3 Hgb 9.7 L (11.2-15.7) gm/L Hct 29.6 L (34.1-44.9) % MCV 95.8 H (79.4-94.8) fl MCH 31.4 (25.6-32.2) pg MCHC 32.8 (32.2-35.5) g/dl RDW Std Deviation 43.6 (36.4-46.3) fL Plt Count 687 H (182-369) K/mm3 MPV 9.1 L (9.4-12.3) fl Neut % (Auto) 50.6 (34.0-71.1) % Lymph % (Auto) 34.8 (19.3-51.7) % Parker % (Auto) 12.3 (4.7-12.5) % Eos % (Auto) 1.6 (0.7-5.8) Baso % (Auto) 0.4 (0.1-1.2) % Neut # 3.49 (1.56-6.13) K/mm3 Lymph # 2.40 (1.18-3.74) K/mm3 Parker # 0.85 H (0.24-0.36) K/mm3 Eos # 0.11 (0.04-0.36) K/mm3 Baso # 0.03 (0.01-0.08) K/mm3 Manual Slide Review Abnormal smear Sodium 138 (136-145) mEq/L Potassium 3.9 (3.5-5.1) mEq/L Chloride 103 (98-107) mEq/L Carbon Dioxide 28 (21-32) mEq/L Anion Gap 10.9 (5-15) BUN 19 H (7-18) mg/dL Creatinine 1.4 H (0.55-1.02) mg/dL Est Cr Clr Drug Dosing 24.91 mL/min Estimated GFR (MDRD) 36 (>60) mL/min BUN/Creatinine Ratio 13.6 L (14-18) Glucose 100 (83-115) mg/dL Calcium 8.7 (8.5-10.1) mg/dL Magnesium 1.6 L (1.8-2.4) mg/dl Mycoplasma pneumon IgM Negative (NEGATIVE) Med Orders - Current: Current Medications Acetaminophen (Tylenol) 650 mg PO Q4H PRN PRN Reason: Pain (Mild 1-3)/fever Acetaminophen/Hydrocodone Bitart ([place] 325-5 Mg) 1 tab PO Q4H PRN PRN Reason: Pain (moderate 4-6) Albuterol/Ipratropium (Duoneb 3.0-0.5 Mg/3 Ml) 3 ml NEB Q4H PRN PRN Reason: Shortness Of Breath/wheezing Allopurinol (Zyloprim) 100 mg PO DAILY [facility] Last Admin: 10/10/16 08:21 Dose: 100 mg Aspirin (Aspirin) 81 mg PO DAILY [facility] Last Admin: 10/10/16 08:21 Dose: 81 mg Atenolol (Tenormin) 50 mg PO DAILY [facility] Last Admin: 10/10/16 08:23 Dose: 50 mg Bisacodyl (Dulcolax) 5 mg PO DAILY PRN PRN Reason: Constipation Calcium Carbonate (Calcium Carbonate/Vitamin D 1500 Mg-200 Unit) 2 tab PO DAILY [facility] Last Admin: 10/10/16 08:21 Dose: 2 tab Diltiazem HCl (Cardizem) 60 mg PO Q12HR [facility] Last Admin: 10/10/16 08:23 Dose: 60 mg Fluticasone Propionate (Flovent Hfa 44 Mcg) 0 gm INH DAILY PRN PRN Reason: Wheezing Hydralazine HCl (Apresoline) 10 mg IVPUSH Q4H PRN PRN Reason: Hypertension Hydromorphone HCl (Dilaudid) 0.25 mg IVPUSH Q2H PRN PRN Reason: Pain (severe 7-10) Promethazine HCl 12.5 mg/ (Sodium Chloride) 50.5 mls @ 100 mls/hr IV Q6H PRN PRN Reason: Nausea/Vomiting Isosorbide Mononitrate (Imdur) 60 mg PO DAILY [facility] Last Admin: 10/10/16 08:21 Dose: 60 mg Lorazepam (Ativan) 0.5 mg IV Q6H PRN PRN Reason: Anxiety Meclizine HCl (Antivert) 25 mg PO Q6H PRN PRN Reason: Dizziness Metoprolol Tartrate (Lopressor) 5 mg IVPUSH Q4H PRN PRN Reason: Tachycardia Multivitamins (Thera) 1 each PO DAILY [facility] Last Admin: 10/10/16 08:21 Dose: 1 each Ondansetron HCl (Zofran) 4 mg IV Q6H PRN PRN Reason: Nausea/Vomiting Pantoprazole Sodium (Protonix) 40 mg PO DAILY@0700 [facility] Last Admin: 10/10/16 06:26 Dose: 40 mg Calcium Carb/D3/Magnesium/Zinc [Adelfo Mag Zinc + D3] 0 each PO DAILY [facility] Last Admin: 10/10/16 08:35 Dose: Not Given Cranberry Conc/Ascorbic Acid [ Cranberry Urinary Comfort] 0 each PO DAILY [facility] Last Admin: 10/10/16 08:35 Dose: Not Given Polyethylene Glycol (Miralax) 17 gm PO DAILY PRN PRN Reason: Constipation Potassium Chloride (Klor-Con 10) 10 meq PO DAILY [facility] Last Admin: 10/10/16 08:21 Dose: 10 meq Senna/Docusate Sodium (Senna Plus) 1 tab PO BID PRN PRN Reason: Constipation Simvastatin (Zocor) 5 mg PO BEDTIME [facility] Last Admin: 10/09/16 21:14 Dose: 5 mg Sodium Chloride (Saline Flush) 10 ml FLUSH ASDIRECTED PRN PRN Reason: Keep Vein Open Last Admin: 10/09/16 10:02 Dose: 10 ml Temazepam (Restoril) 7.5 mg PO BEDTIME PRN PRN Reason: Sleep Triamterene/HCTZ (Dyazide 25-37.5 Mg) 1 each PO DAILY [facility] Last Admin: 10/10/16 08:23 Dose: 1 each Discontinued Medications Sodium Chloride (Normal Saline) 1,000 mls @ 150 mls/hr IV ASDIRECTED ARJUN Last Admin: 10/09/16 10:02 Dose: 150 mls/hr Magnesium Sulfate 2 gm/ Premix 50 mls @ 25 mls/hr IV ONETIME ONE Stop: 10/10/16 10:44 Last Admin: 10/10/16 08:19 Dose: 25 mls/hr Magnesium Sulfate (Pharmacy To Dose - Magnesium Replacement) 0 dose .XX ASDIRECTED PRN PRN Reason: RX TO MONITOR MAG LEVELS Meclizine HCl (Antivert) 25 mg PO ONETIME ONE Stop: 10/09/16 09:47 Last Admin: 10/09/16 10:33 Dose: 25 mg Metoclopramide HCl (Reglan) 10 mg IVPUSH ONETIME ONE Stop: 10/09/16 09:45 Last Admin: 10/09/16 10:00 Dose: 10 mg Potassium Chloride (Pharmacy To Dose - Potassium Replacement) 0 dose .XX ASDIRECTED PRN PRN Reason: RX TO MONITOR K LEVELS - Exam Quality Assessment: DVT prophylaxis General: alert, oriented, cooperative, no acute distress HEENT: Pupils equal, Pupils reactive, EOMI Neck: supple, trachea midline Lungs: Clear to auscultation Cardiovascular: Regular Rate Abdomen: bowel sounds present, soft, no tenderness, no distension (Female) Exam: Deferred Back Exam: normal inspection Extremities: normal pulses Skin: warm Neurological: no new focal deficit, normal speech Psy/Mental Status: alert, normal affect, normal mood - Problem List Review Problem List Initiated/Reviewed/Updated: Yes - My Orders Last 24 Hours: My Active Orders 10/10/16 18:00 INFLUENZA A+B AG SCREEN [RM] Routine - Plan Plan:: Assessment/Plan: Acute: Query Vertigo - Head CT scan: negative for acute abnormal findings - EKG on admission: Sinus Rhythm with a Rate of 66 bpm - Orthostatic negative ......Similar episode 01/04 with prsyncope after using the commode, R/o Cardiac Dysrrhythmia-telemetry - No recent sinus, oral or ear infection - No acute hearing issues - No hx/o Migraine - Negative dizziness with abrupt head movement or change in position - Lateral Nystagmus, seen on admission. - Adequate IV hydration and PRN medications - PT/OT for Vestibular treatment S/p Nausea and Vomiting - PRN anti-emesis 2D echo, pending. Chronic: Hx.o Arrhythmia HLD HTN GERD CKD Stage 3 Chronic POON's Pre-Diabetic Plan: Admit to Obs with Tele, follow for sss/afib Will need Holter on DC Check for Infectious cause, patient and family report decrease appetite and febrile episodes x2 Routine AM labs Resume home meds PRN Meds for symptomatic control Code status: 1 Monitor, increase activity, DC expected 10/11/16.
[2016-10-10] MEDS: Simvastatin 10 MG Tab PO SCH (20:33)
[2016-10-11] MEDS: Pantoprazole 40 MG Tab.CR PO SCH (06:26)
[2016-10-11] MEDS: Aspirin 81 MG Tab.Chew PO SCH (08:55)
[2016-10-11] MEDS: Hydrochlorothiazide/Triamterene 25-37.5 MG Cap PO SCH (08:55)
[2016-10-11] MEDS: Multivitamins,Therapeutic Tab PO SCH (08:55)
[2016-10-11] MEDS: Atenolol 50 MG Tab PO SCH (08:56)
[2016-10-11] MEDS: Potassium Chloride 10 MEQ Tab.ER PO SCH (08:56)
[2016-10-11] MEDS: Calcium Carbonate/Vitamin D3 1500 MG-200 Units Tab PO SCH (08:56)
[2016-10-11] MEDS: Allopurinol 100 MG Tab PO SCH (08:56)
[2016-10-11] MEDS: Isosorbide Mononitrate 60 MG Tab.ER PO SCH (08:56)
[2016-10-11 08:57] VITALS: BP 125/59
[2016-10-11] MEDS: ZINC PO SCH (08:57)
[2016-10-11] MEDS: MAGNESIUM PO SCH (08:57)
[2016-10-11] MEDS: CALCIUM CARB PO SCH (08:57)
[2016-10-11] MEDS: D3 PO SCH (08:57)
[2016-10-11] MEDS: ASCORBIC ACID PO SCH (08:57)
[2016-10-11] MEDS: CRANBERRY PO SCH (08:57)
--- NOTE | 2016-10-11 10:54 | PCM.DCSUM1 ---
Discharge Summary - Hospital Course Free Text/Narrative:: This is an 86 yo elderly white female with past medical hx of Arrhythmia, HLD, HTN, GERD, CKD Stage 3, Chronic Headaches and Pre-diabetes who comes in with complaints of dizziness (room spinning) associated with nausea , vomiting, and imbalance. She was initially seen on Saturday for syncopal episode with benign work up. Patient symptom started this am and could not get out of bed. She also could not lift her head off the pillow due to symptomatology. She had been febrile with dry cough a few days prior to this. Patient reports no previous hx in the past. She reports no new ENT issues. She denies being diabetic. She further denies any recent Viral Illness or systemic infection. Her initial work up in ED shows a CBC remarkable for Hgb 10.9. Her chemistry is remarkable for BUN 22, Cr 1.4, BS 117, AST 42, Alk Phos 214, and Albumin 2.6. Her Head CT scan shows no acute abnormal findings. EKG is benign. Patient was referred to Hospitalist service for Vertigo and near syncope evaluation/ management. She is full code. Patient was admitted, hydrated. PT eval for BPPV. She will cont to work with PT after discharge. Flu screening and mycoplasma pneumonia was negative. Echocardiogram was obtained with normal EF, no other abnormal findings. She maintained NSR on telemetry but was not very active during her hospital stay. Labs and VSS. She will be discharged home today with follow up with her PCP, Dr. Cisneros next week with 24hour holter monitor upon discharge- results to Dr. Cisneros for her review. Dr. Vance strongly recommends Cardiology consult for near syncope within 2-4 weeks, family wishes to arrange their own appointment. - Discharge Data Discharge Date: 10/11/16 (admit date 10/09/16) Discharge Disposition: Home, Self-Care 01 Condition: Good - Patient Summary/Data Operative Procedure(s) Performed: None Complications: None Consults: Consultations 10/09/16 14:38 Consult to Case Management [CONS] Routine Consult to [employer] [CONS] Routine OT Evaluation and Treatment [CONS] Routine PT Evaluation and Treatment [CONS] Routine Labs Pending at D/C: None Recommended Follow-up Testing/Procedures: Follow up with Dr. Cisneros, PCP within 5-7 days of discharge Recommend Cardiology consult for evaluation:presyncope 24 hour Holter monitor on discharge, results to Dr. Cisneros for review Small frequent meals/snacks throughout the day, every 2-3 hours Push fluids; 8-10 glasses of water/fluid through the day Ambulate, walk 3 times daily Planned Operative Procedure(s) after DC: None Hospital Course: As above - Patient Instructions Diet: Heart Healthy Diet, Drink 8-10+ Glasses/Day Activity: As Tolerated Driving: Do Not Drive Showering/Bathing: May Shower Notify Provider of: Fever, Nausea and/or Vomiting (shortness of breath, dizziness, chest pains, imbalance) - Discharge Plan Home Medications: Home Meds Aspirin 81 mg PO DAILY 12/30/15 [History] Atenolol 50 mg PO DAILY 12/30/15 [History] Isosorbide Mononitrate [Imdur] 60 mg PO DAILY 12/30/15 [History] Omeprazole 20 mg PO DAILY 12/30/15 [History] Simvastatin [Zocor] 5 mg PO BEDTIME 12/30/15 [History] Triamterene/Hydrochlorothiazid [Triamterene-HCTZ 37.5-25 MG] 1 tab PO DAILY 05/06 [History] Allopurinol [Zyloprim] 100 mg PO DAILY #30 tablet 01/01/16 [Rx] Diltiazem [Cardizem] 60 mg PO Q12HR #60 tablet 01/01/16 [Rx] Acetaminophen 500 mg PO Q4H PRN 10/09/16 [History] Calcium Carb/D3/Magnesium/Zinc [Adelfo Mag Zinc + D3] 1 tab PO DAILY 10/09/16 [ History] Cranberry Conc/Ascorbic Acid [Cranberry Urinary Comfort Sfgl] 1 tab PO DAILY [History] Fluticasone Propionate [Flovent HFA 44 MCG] 2 puff INH DAILY PRN 10/09/16 [ History] Multivits,Th w-Fe,Other Min [Complete Multivitamin] 1 tab PO DAILY 10/09/16 [ History] Potassium Chloride [Klor-Con Sprinkle] 10 meq PO DAILY 10/09/16 [History] Patient Handouts: Near-Syncope, [id number] Forms: ED Department Discharge Referrals: Trinity Cisneros MD [Primary Care Provider] - - Discharge Summary/Plan Comment DC Time >30 min.: Yes (40 min) - General Info Date of Service: 10/11/16 Admission Dx/Problem (Free Text: Admission Diagnosis/Problem Admission Diagnosis/Problem Vertigo Near-syncope Functional Status: Reports: pain controlled, tolerating diet, ambulating, urinating. Denies: new symptoms - Review of Systems General: Reports: No Symptoms HEENT: Reports: no symptoms Pulmonary: Reports: no symptoms Cardiovascular: Reports: No Symptoms Gastrointestinal: Reports: No symptoms Genitourinary: Reports: no symptoms Musculoskeletal: Reports: no symptoms Skin: Reports: no symptoms Neurological: Reports: No Symptoms Psychiatric: Reports: no symptoms - Patient Data Vitals - Most Recent: Last Vital Signs Temp 99.1 F 10/11/16 04:58 Pulse 62 10/11/16 08:56 Resp 12 10/11/16 04:58 BP 125/59 L 10/11/16 08:56 Pulse Ox 94 L 10/11/16 08:56 Weight - Most Recent: 156 lb I&O - Last 24 hours: Intake & Output 10/10/16 10/11/16 10/11/16 22:59 06:59 14:59 Intake Total 360 625 Balance 360 625 Lab Results - Last 24 hrs: Laboratory Results - last 24 hr 10/10/16 10/11/16 Range/Units 05:40 05:44 Sodium 138 (136-145) mEq/L Potassium 4.0 (3.5-5.1) mEq/L Chloride 102 (98-107) mEq/L Carbon Dioxide 28 (21-32) mEq/L Anion Gap 12.0 (5-15) BUN 18 (7-18) mg/dL Creatinine 1.4 H (0.55-1.02) mg/dL Est Cr Clr Drug Dosing 24.91 mL/min Estimated GFR (MDRD) 36 (>60) mL/min BUN/Creatinine Ratio 12.9 L (14-18) Glucose 99 (83-115) mg/dL Calcium 8.9 (8.5-10.1) mg/dL Magnesium 1.8 (1.8-2.4) mg/dl Mycoplasma pneumon IgM Negative (NEGATIVE) ANU Results - Last 24 hrs: Microbiology 10/10/16 18:24 Influenza Type A Antigen Screen - Final Nasopharyngeal Swab - Nare, Left NEGATIVE INFLUENZA A VIRUS AG Influenza Type B Antigen Screen - Final NEGATIVE INFLUENZA B VIRUS AG Med Orders - Current: Current Medications Acetaminophen (Tylenol) 650 mg PO Q4H PRN PRN Reason: Pain (Mild 1-3)/fever Acetaminophen/Hydrocodone Bitart ([place] 325-5 Mg) 1 tab PO Q4H PRN PRN Reason: Pain (moderate 4-6) Albuterol/Ipratropium (Duoneb 3.0-0.5 Mg/3 Ml) 3 ml NEB Q4H PRN PRN Reason: Shortness Of Breath/wheezing Allopurinol (Zyloprim) 100 mg PO DAILY [facility] Last Admin: 10/11/16 08:56 Dose: 100 mg Aspirin (Aspirin) 81 mg PO DAILY [facility] Last Admin: 10/11/16 08:55 Dose: 81 mg Atenolol (Tenormin) 50 mg PO DAILY [facility] Last Admin: 10/11/16 08:56 Dose: 50 mg Bisacodyl (Dulcolax) 5 mg PO DAILY PRN PRN Reason: Constipation Last Admin: 10/11/16 08:56 Dose: 5 mg Calcium Carbonate (Calcium Carbonate/Vitamin D 1500 Mg-200 Unit) 2 tab PO DAILY [facility] Last Admin: 10/11/16 08:56 Dose: 2 tab Diltiazem HCl (Cardizem) 60 mg PO Q12HR [facility] Last Admin: 10/11/16 08:56 Dose: 60 mg Fluticasone Propionate (Flovent Hfa 44 Mcg) 0 gm INH DAILY PRN PRN Reason: Wheezing Hydralazine HCl (Apresoline) 10 mg IVPUSH Q4H PRN PRN Reason: Hypertension Hydromorphone HCl (Dilaudid) 0.25 mg IVPUSH Q2H PRN PRN Reason: Pain (severe 7-10) Promethazine HCl 12.5 mg/ (Sodium Chloride) 50.5 mls @ 100 mls/hr IV Q6H PRN PRN Reason: Nausea/Vomiting Isosorbide Mononitrate (Imdur) 60 mg PO DAILY [facility] Last Admin: 10/11/16 08:56 Dose: 60 mg Lorazepam (Ativan) 0.5 mg IV Q6H PRN PRN Reason: Anxiety Meclizine HCl (Antivert) 25 mg PO Q6H PRN PRN Reason: Dizziness Metoprolol Tartrate (Lopressor) 5 mg IVPUSH Q4H PRN PRN Reason: Tachycardia Multivitamins (Thera) 1 each PO DAILY [facility] Last Admin: 10/11/16 08:55 Dose: 1 each Ondansetron HCl (Zofran) 4 mg IV Q6H PRN PRN Reason: Nausea/Vomiting Pantoprazole Sodium (Protonix) 40 mg PO DAILY@0700 [facility] Last Admin: 10/11/16 06:26 Dose: 40 mg Calcium Carb/D3/Magnesium/Zinc [Adelfo Mag Zinc + D3] 0 each PO DAILY [facility] Last Admin: 10/11/16 08:57 Dose: Not Given Cranberry Conc/Ascorbic Acid [ Cranberry Urinary Comfort] 0 each PO DAILY [facility] Last Admin: 10/11/16 08:57 Dose: Not Given Polyethylene Glycol (Miralax) 17 gm PO DAILY PRN PRN Reason: Constipation Potassium Chloride (Klor-Con 10) 10 meq PO DAILY [facility] Last Admin: 10/11/16 08:56 Dose: 10 meq Senna/Docusate Sodium (Senna Plus) 1 tab PO BID PRN PRN Reason: Constipation Simvastatin (Zocor) 5 mg PO BEDTIME [facility] Last Admin: 10/10/16 20:33 Dose: 5 mg Sodium Chloride (Saline Flush) 10 ml FLUSH ASDIRECTED PRN PRN Reason: Keep Vein Open Last Admin: 10/09/16 10:02 Dose: 10 ml Temazepam (Restoril) 7.5 mg PO BEDTIME PRN PRN Reason: Sleep Triamterene/HCTZ (Dyazide 25-37.5 Mg) 1 each PO DAILY [facility] Last Admin: 10/11/16 08:55 Dose: 1 each Discontinued Medications Sodium Chloride (Normal Saline) 1,000 mls @ 150 mls/hr IV ASDIRECTED [facility] Last Admin: 10/09/16 10:02 Dose: 150 mls/hr Magnesium Sulfate 2 gm/ Premix 50 mls @ 25 mls/hr IV ONETIME ONE Stop: 10/10/16 10:44 Last Admin: 10/10/16 08:19 Dose: 25 mls/hr Magnesium Sulfate (Pharmacy To Dose - Magnesium Replacement) 0 dose .XX ASDIRECTED PRN PRN Reason: RX TO MONITOR MAG LEVELS Meclizine HCl (Antivert) 25 mg PO ONETIME ONE Stop: 10/09/16 09:47 Last Admin: 10/09/16 10:33 Dose: 25 mg Metoclopramide HCl (Reglan) 10 mg IVPUSH ONETIME ONE Stop: 10/09/16 09:45 Last Admin: 10/09/16 10:00 Dose: 10 mg Potassium Chloride (Pharmacy To Dose - Potassium Replacement) 0 dose .XX ASDIRECTED PRN PRN Reason: RX TO MONITOR K LEVELS - Exam Quality Assessment: Reports: DVT prophylaxis General: Reports: alert, oriented, cooperative, no acute distress HEENT: Reports: Pupils equal, Pupils reactive, EOMI, Mucous membr. moist/pink Neck: Reports: supple Lungs: Reports: Clear to auscultation, Normal respiratory effort Cardiovascular: Reports: Regular Rate, Regular Rhythm, Rubs Abdomen: Reports: bowel sounds present, soft, no tenderness (Female) Exam: Deferred Rectal (Female) Exam: Deferred Extremities: Reports: no edema, no calf tenderness Skin: Reports: warm, dry, intact Neurological: Reports: no new focal deficit Psy/Mental Status: Reports: alert, normal affect, normal mood *Q Meaningful Use (DIS) - VTE *Q VTE Criteria *Q: - Stroke *Q Stroke Criteria *Q: - AMI *Q AMI Criteria *Q:
== END 2016-10-11 11:30 | disposition home or self-care (01) | DRG 149 ==
LOC: JD.ED 09:04 → OBSVTOIN 13:16 → JD.MS 13:16
PROVIDERS: ADMIT Internal Medicine; ATTEND Internal Medicine
DX: R42 Dizziness and giddiness (principal); R53.1 Weakness; E78.5 Hyperlipidemia, unspecified; N18.9 Chronic kidney disease, unspecified; E78.00 Pure hypercholesterolemia, unspecified; I12.9 Hypertensive chronic kidney disease with stage 1 through stage 4 chronic kidney disease, or unspecified chronic kidney disease; N18.3 Chronic kidney disease, stage 3 (moderate); K21.9 Gastro-esophageal reflux disease without esophagitis; R73.03 Prediabetes; Z88.8 Allergy status to other drugs, medicaments and biological substances; Z79.82 Long term (current) use of aspirin; Z79.899 Other long term (current) drug therapy
CPT/HCPCS: 36415; 51701; 70450; 80053; 81001; 84484; 85025; 93005; 96361; 96374; 99285; A9270; J2765; J7040; J7050; 80048; 83735; 86738; 87804; 93306; 97112-GP; 97116-GP; 97162-GP; 97165-GO; J3475; P9612

== ENCOUNTER 2016-10-12 22:20 | Emergency (ER) | payer MEDICARE, OTHER ==
[2016-10-12] MEDS ORDERED: Sodium Chloride 0.9% 10 ML Syringe FLUSH PRN (22:36)
[2016-10-12] MEDS ORDERED: Meclizine 12.5 MG Tab PO ONE (22:56)
[2016-10-12] MEDS ORDERED: methylPREDNISolone Sodium Succinate 125 MG/2 ML SDV IVPUSH ONE (22:56)
--- NOTE | 2016-10-13 00:28 | EDM.PDOC ---
ED HPI NEURO - General Chief Complaint: Neuro Symptoms/Deficits Stated Complaint: [facility] Time Seen by Provider: 10/12/16 22:30 Source of Information: Reports: Patient, Family, RN notes reviewed - History of Present Illness INITIAL COMMENTS - FREE TEXT/NARRATIVE: 86-year-old lady comes in with severe vertigo. SHe was evaluated here in the emergency department one week ago having suffered a similar episode of vertigo to the point where she lost her balance and fell. See that record for details. She was evaluated, treated and released home. She did well then for the next 3 or 4 days. She did have recurrence of severe vertigo-type dizziness 2 days ago. She was evaluated, admitted into the hospital for observation. The dizziness resolved and she was released home yesterday feeling much better. She did okay today although she did have one brief episode of dizziness when first arising this past morning. Then this evening about one hour ago when getting up from the bathroom she had severe vertigo-type dizziness once again. She states the room was "spinning around on her". She had to lie down. Ambulance was called. She was transported here without further incident. Now that she is lying on a cot here in the emergency room the dizziness is much better. She states it is better to lie still, much worse with any type of motion. She's having no chest pain or difficulty breathing. No headache. There's been no nausea or vomiting. - Related Data Allergies/ADRs: Allergies Allergy/AdvReac Type Severity Reaction Status Date / Time atorvastatin [From Lipitor] Allergy Cannot Verified 10/09/16 09:20 Remember lisinopril Allergy Cannot Verified 10/09/16 09:20 Remember Home Meds: Home Meds Aspirin 81 mg PO DAILY 12/30/15 [History] Atenolol 50 mg PO DAILY 12/30/15 [History] Isosorbide Mononitrate [Imdur] 60 mg PO DAILY 12/30/15 [History] Omeprazole 20 mg PO DAILY 12/30/15 [History] Simvastatin [Zocor] 5 mg PO BEDTIME 12/30/15 [History] Triamterene/Hydrochlorothiazid [Triamterene-HCTZ 37.5-25 MG] 1 tab PO DAILY 05/06 [History] Allopurinol [Zyloprim] 100 mg PO DAILY #30 tablet 01/01/16 [Rx] Diltiazem [Cardizem] 60 mg PO Q12HR #60 tablet 01/01/16 [Rx] Acetaminophen 500 mg PO Q4H PRN 10/09/16 [History] Calcium Carb/D3/Magnesium/Zinc [Adelfo Mag Zinc + D3] 1 tab PO DAILY 10/09/16 [ History] Cranberry Conc/Ascorbic Acid [Cranberry Urinary Comfort Sfgl] 1 tab PO DAILY [History] Fluticasone Propionate [Flovent HFA 44 MCG] 2 puff INH DAILY PRN 10/09/16 [ History] Multivits,Th w-Fe,Other Min [Complete Multivitamin] 1 tab PO DAILY 10/09/16 [ History] Potassium Chloride [Klor-Con Sprinkle] 10 meq PO DAILY 10/09/16 [History] Past Medical History HEENT History: Reports: Impaired vision, Other (see below) Other HEENT History: wears glasses Cardiovascular History: Reports: Arrhythmia, High cholesterol, Hypertension Gastrointestinal History: Reports: GERD Genitourinary History: Reports: Chronic renal insuffiency [employer] History: Reports: Musculoskeletal History: Reports: Fracture Neurological History: Reports: Headaches, chronic, Other (see below) Other Neuro History: many yrs ago had H/A's. Endocrine/Metabolic History: Reports: Other (see below) Other Endocrine/Metabolic History: daughter states that pt is "pre-diabetic." Oncologic (Cancer) History: Reports: Basal cell carcinoma, Other (see below) Other Oncologic History: skin cancer Dermatologic History: Reports: Other (see below) Other Dermatologic History: skin cancer - Infectious Disease History Infectious Disease History: Reports: Measles - Past Surgical History HEENT Surgical History: Reports: Cataract surgery, Tonsillectomy Social & Family History - Family History Family Medical History: Unobtainable - Tobacco Use Smoking Status *Q: Never Smoker Second Hand Smoke Exposure: No - Caffeine Use Caffeine Use: Reports: None Other Caffeine Use: occasional cup of coffee daily - Recreational Drug Use Recreational Drug Use: No ED ROS GENERAL - Review of Systems Review Of Systems: See Below Constitutional: Denies: fever, chills HEENT: Denies: Sinus problem, Throat pain, Vision change Respiratory: Denies: Shortness of Breath, Pleuritic Chest Pain, Cough Cardiovascular: Denies: Chest pain GI/Abdominal: Denies: Abdominal pain, Nausea, Vomiting Musculoskeletal: Denies: neck pain, shoulder pain, arm pain Skin: Reports: no symptoms Neurological: Denies: Headache, Numbness, Tingling, Trouble Speaking, Weakness ED EXAM, NEURO - Physical Exam Exam: See Below General Appearance: alert, no apparent distress Eye Exam: bilateral eye: PERRL Throat/Mouth: Normal inspection, Normal oropharynx Head Exam: atraumatic. No: facial swelling Neck: supple, full range of motion. No: lymphadenopathy (L), lymphadenopathy (R ) Respiratory/Chest: no respiratory distress, lungs clear, normal breath sounds Cardiovascular: regular rate, rhythm GI/Abdominal: soft, non tender. No: guarding Neurological: alert, no motor/sensory deficits, oriented x 3, other (Finger to nose testing normal) Extremities: normal inspection, normal range of motion. No: pedal edema, leg pain Skin Exam: Warm, Dry, Normal color EKG INTERPRETATION EKG Date: 10/13/16 Rhythm: NSR O'Brien: normal P-wave: present QRS: other (Q waves present lead III) Course - Vital Signs Last Recorded V/S: Last Vital Signs Temp 98.1 F 10/12/16 22:26 Pulse 76 10/12/16 23:15 Resp 18 10/12/16 23:15 BP 144/91 H 10/12/16 23:15 Pulse Ox 99 10/12/16 23:15 - Orders/Labs/Meds Orders: Active Orders 24 hr Category Date Time Status EKG 12 Lead [EKG Documentation Completion] [RC] STAT Care 10/12/16 22:36 Active Peripheral IV Care [RC] . DIRECTED Care 10/12/16 22:38 Active Sodium Chloride 0.9% [Saline Flush] Med 10/12/16 22:36 Active 10 ml FLUSH ASDIRECTED PRN Peripheral IV Insertion Adult [OM.PC] Stat Oth 10/12/16 22:38 Ordered Medication Orders Sodium Chloride (Saline Flush) 10 ml FLUSH ASDIRECTED PRN PRN Reason: Keep Vein Open Last Admin: 10/12/16 22:45 Dose: 10 ml Labs: Laboratory Tests 10/12/16 10/12/16 Range/Units 23:00 23:00 WBC 7.58 (3.98-10.04) K/mm3 RBC 3.51 L (3.98-5.22) M/mm3 Hgb 11.1 L (11.2-15.7) gm/L Hct 33.3 L (34.1-44.9) % MCV 94.9 H (79.4-94.8) fl MCH 31.6 (25.6-32.2) pg MCHC 33.3 (32.2-35.5) g/dl RDW Std Deviation 43.7 (36.4-46.3) fL Plt Count 707 H (182-369) K/mm3 MPV 8.7 L (9.4-12.3) fl Neut % (Auto) 49.9 (34.0-71.1) % Lymph % (Auto) 36.7 (19.3-51.7) % [place] % (Auto) 11.2 (4.7-12.5) % Eos % (Auto) 1.6 (0.7-5.8) Baso % (Auto) 0.5 (0.1-1.2) % Neut # (Auto) 3.78 (1.56-6.13) K/mm3 Lymph # (Auto) 2.78 (1.18-3.74) K/mm3 [place] # (Auto) 0.85 H (0.24-0.36) K/mm3 Eos # (Auto) 0.12 (0.04-0.36) K/mm3 Baso # (Auto) 0.04 (0.01-0.08) K/mm3 Manual Slide Review Abnormal smear Sodium 139 (136-145) mEq/L Potassium 3.5 (3.5-5.1) mEq/L Chloride 102 (98-107) mEq/L Carbon Dioxide 29 (21-32) mEq/L Anion Gap 11.5 (5-15) BUN 20 H (7-18) mg/dL Creatinine 1.5 H (0.55-1.02) mg/dL Est Cr Clr Drug Dosing 23.74 mL/min Estimated GFR (MDRD) 33 (>60) mL/min BUN/Creatinine Ratio 13.3 L (14-18) Glucose 117 H (83-115) mg/dL Calcium 9.1 (8.5-10.1) mg/dL Total Bilirubin 0.3 (0.2-1.0) mg/dL AST 28 (15-37) U/L ALT 28 (14-59) U/L Alkaline Phosphatase 183 H (46-116) U/L Total Protein 6.8 (6.4-8.2) g/dl Albumin 2.8 L (3.4-5.0) g/dl Globulin 4.0 gm/dL Albumin/Globulin Ratio 0.7 L (1-2) Meds: Medications Generic Name Dose Route Start Last Admin Trade Name Freq PRN Reason Stop Dose Admin Sodium Chloride 10 ml 10/12/16 22:36 10/12/16 22:45 Saline Flush FLUSH 10 ml ASDIRECTED PRN Administration Keep Vein Open Discontinued Medications Generic Name Dose Route Start Last Admin Trade Name Freq PRN Reason Stop Dose Admin Meclizine HCl 12.5 mg 10/12/16 22:56 10/12/16 23:14 Antivert PO 10/12/16 22:57 12.5 mg ONETIME ONE Administration Methylprednisolone Sodium Succinate 125 mg 10/12/16 22:56 10/12/16 23:14 Solu-Medrol IVPUSH 10/12/16 22:57 125 mg ONETIME ONE Administration - Re-Assessments/Exams Free Text/Narrative Re-Assessment/Exam: 10/13/16 02:13 patient was given Antivert 12.5 mg by mouth shortly after arrival and also Solu-Medrol 125 mg IV. She was allowed to be at bedrest while labs were done. The result did come back quite normal. With the meds, rest and time her symptoms of vertigo completely resolved. She was able to sit up, move her head slowly carefully from side to side without recurrence of symptoms. Therefore she is allowed to go back home, discharge instructions as documented Departure - Departure Time of Disposition: 00:21 Disposition: Home, Self-Care 01 Condition: fair Clinical Impression: Labyrinthitis Qualifiers: Laterality: unspecified laterality Qualified Code(s): H83.09 - Labyrinthitis, unspecified ear Instructions: Labyrinthitis, [id number] Referrals: Trinity Cisneros MD [Primary Care Provider] - Forms: ED Department Discharge Additional Instructions: Rest, move very slowly and carefully, antivert 12.5 mg twice daily for the next 3 to 4 days. This is available from your pharmacist OTC. You will be taking 1/2 of a 25 mg tablet at a time. If you do have further spells or episodes of vertigo-type dizziness it will be best to lie down, close your eyes and rest for at least 20-30 minutes. Usually these episodes will pass with a short period of lying still and not moving. If you start having severe chest pain, severe nausea or vomiting or symptoms otherwise worsening in any way than return to ED as needed. - My Orders Last 24 Hours: My Active Orders 10/12/16 22:36 EKG 12 Lead [EKG Documentation Completion] [RC] STAT Sodium Chloride 0.9% [Saline Flush] 10 ml FLUSH ASDIRECTED PRN 10/12/16 22:38 Peripheral IV Care [RC] . DIRECTED Peripheral IV Insertion Adult [OM.PC] Stat - Assessment/Plan Last 24 Hours: My Active Orders 10/12/16 22:36 EKG 12 Lead [EKG Documentation Completion] [RC] STAT Sodium Chloride 0.9% [Saline Flush] 10 ml FLUSH ASDIRECTED PRN 10/12/16 22:38 Peripheral IV Care [RC] . DIRECTED Peripheral IV Insertion Adult [OM.PC] Stat
[2016-10-13 02:42] VITALS: BP 172/76
== END 2016-10-13 00:40 | disposition home or self-care (01) ==
LOC: JD.ED 22:20
DX: H83.09 Labyrinthitis, unspecified ear (principal); E78.00 Pure hypercholesterolemia, unspecified; K21.9 Gastro-esophageal reflux disease without esophagitis; I12.9 Hypertensive chronic kidney disease with stage 1 through stage 4 chronic kidney disease, or unspecified chronic kidney disease; N18.9 Chronic kidney disease, unspecified; Z85.828 Personal history of other malignant neoplasm of skin; Z98.49 Cataract extraction status, unspecified eye; Z98.890 Other specified postprocedural states; Z79.82 Long term (current) use of aspirin; Z79.899 Other long term (current) drug therapy; Z88.8 Allergy status to other drugs, medicaments and biological substances
CPT/HCPCS: 36415; 80053; 85025; 93005; 96374; 99285; A9270; J2930; J7050; 99284

== ENCOUNTER 2017-04-19 19:50 | Emergency (ER) | payer MEDICARE, OTHER ==
[2017-04-19 20:05] VITALS: BP 148/69
[2017-04-19] MEDS ORDERED: Sodium Chloride 0.9% 10 ML Syringe FLUSH PRN (20:06)
--- NOTE | 2017-04-19 20:08 | EDM.PDOC ---
ED HPI GENERAL MEDICAL PROBLEM - General Chief Complaint: Abdominal Pain Stated Complaint: RIGHT SIDE PAIN Time Seen by Provider: 04/19/17 20:05 Source of Information: Reports: Patient History Limitations: Reports: No Limitations - History of Present Illness INITIAL COMMENTS - FREE TEXT/NARRATIVE: Patient is a 87-year-old female who presents to the ED complaining of right lower quadrant abdominal pain that has since resolved with admission to the ED. Patient states this started approximately half hour ago while at home bending down. Pain was described as a dull ache worsened with palpation. Patient had some flatulence while in the ED waiting room and reports with admission to the ED pain has since resolved. She does have a history constipation and is not taking any stool softeners not currently taking any medications. She has not had a bowel movement today. She has no fever, chest pain, SOB, nausea/vomiting, abdominal pain, or dysuria with history taking. She does not have her appendix since this was taken out during her hysterectomy. Pain is not related to eating food. She offers no additional complaints. Right Lower Abdomen Pain Score (Numeric/FACES): 6 - Related Data Allergies Allergy/AdvReac Type Severity Reaction Status Date / Time atorvastatin [From Lipitor] Allergy Cannot Verified 04/19/17 20:05 Remember lisinopril Allergy Cannot Verified 04/19/17 20:05 Remember Home Meds: Home Meds Aspirin 81 mg PO DAILY 12/30/15 [History] Atenolol 50 mg PO DAILY 12/30/15 [History] Isosorbide Mononitrate [Imdur] 60 mg PO DAILY 12/30/15 [History] Omeprazole 20 mg PO DAILY 12/30/15 [History] Simvastatin [Zocor] 5 mg PO BEDTIME 12/30/15 [History] Triamterene/Hydrochlorothiazid [Triamterene-HCTZ 37.5-25 MG] 1 tab PO DAILY 05/06 [History] Allopurinol [Zyloprim] 100 mg PO DAILY #30 tablet 01/01/16 [Rx] Diltiazem [Cardizem] 60 mg PO Q12HR #60 tablet 01/01/16 [Rx] Acetaminophen 500 mg PO Q4H PRN 10/09/16 [History] Calcium Carb/D3/Magnesium/Zinc [Adelfo Mag Zinc + D3] 1 tab PO DAILY 10/09/16 [ History] Cranberry Conc/Ascorbic Acid [Cranberry Urinary Comfort Sfgl] 1 tab PO DAILY [History] Fluticasone Propionate [Flovent HFA 44 MCG] 2 puff INH DAILY PRN 10/09/16 [ History] Multivits,Th w-Fe,Other Min [Complete Multivitamin] 1 tab PO DAILY 10/09/16 [ History] Potassium Chloride [Klor-Con Sprinkle] 10 meq PO DAILY 10/09/16 [History] Past Medical History HEENT History: Reports: Impaired Vision, Other (See Below) Other HEENT History: wears glasses Cardiovascular History: Reports: Arrhythmia, High Cholesterol, Hypertension Gastrointestinal History: Reports: GERD Genitourinary History: Reports: Chronic Renal Insuffiency 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 Endocrine/Metabolic History: Reports: Other (See Below) Other Endocrine/Metabolic History: daughter states that pt is "pre-diabetic." Oncologic (Cancer) History: Reports: Basal Cell Carcinoma, Other (See Below) Other Oncologic History: skin cancer Dermatologic History: Reports: Other (See Below) Other Dermatologic History: skin cancer - Infectious Disease History Infectious Disease History: Reports: Measles - Past Surgical History HEENT Surgical History: Reports: Cataract Surgery, Tonsillectomy Social & Family History - Family History Family Medical History: Unobtainable - Tobacco Use Smoking Status *Q: Never Smoker Second Hand Smoke Exposure: No - Caffeine Use Caffeine Use: Reports: None Other Caffeine Use: occasional cup of coffee daily - Recreational Drug Use Recreational Drug Use: No ED ROS GENERAL - Review of Systems Review Of Systems: ROS reveals no pertinent complaints other than HPI. ED EXAM, GI/ABD - Physical Exam Exam: See Below Exam Limited By: No Limitations General Appearance: Alert, WD/WN, No Apparent Distress Ears: Hearing Grossly Normal Nose: Normal Inspection Throat/Mouth: Normal Voice, No Airway Compromise Neck: Normal Inspection, Supple Respiratory/Chest: No Respiratory Distress, Lungs Clear, Normal Breath Sounds, No Accessory Muscle Use, Chest Non-Tender Cardiovascular: Normal Peripheral Pulses, Regular Rate, Rhythm GI/Abdominal Exam: Normal Bowel Sounds, Soft, Non-Tender, No Organomegaly, No Distention, No Abnormal Bruit, No Mass Neurological: Alert, Oriented, CN II-XII Intact, Normal Cognition, No Motor/ Sensory Deficits Psychiatric: Normal Affect, Normal Mood Skin Exam: Warm, Dry, Intact, Normal Color Course - Vital Signs Last Recorded V/S: Last Vital Signs Temp 97.6 F 04/19/17 20:01 Pulse 72 04/19/17 20:01 Resp 16 04/19/17 20:01 BP 148/69 H 04/19/17 20:01 Pulse Ox 98 04/19/17 20:01 - Orders/Labs/Meds Orders: Active Orders 24 hr Category Date Time Status Peripheral IV Care [RC] . DIRECTED Care 04/19/17 20:06 Inactive Abdomen 2V AP Flat Upright [CR] Stat Exams 04/19/17 20:06 Stop Req Meds: Medications Discontinued Medications Generic Name Dose Route Start Last Admin Trade Name Freq PRN Reason Stop Dose Admin Sodium Chloride 1,000 mls @ 125 mls/hr 04/19/17 20:15 Normal Saline IV ASDIRECTED ARJUN Sodium Chloride 10 ml 04/19/17 20:06 Saline Flush FLUSH ASDIRECTED PRN Keep Vein Open - Re-Assessments/Exams Free Text/Narrative Re-Assessment/Exam: Patient is pain free with examination. Orders cancelled. She is wishing to go home. Discharge instructions as documented. Departure - Departure Time of Disposition: 20:21 Disposition: Home, Self-Care 01 Condition: Good Clinical Impression: Abdominal pain Qualifiers: Abdominal location: right lower quadrant Qualified Code(s): R10.31 - Right lower quadrant pain - Discharge Information Referrals: Trinity Cisneros MD [Primary Care Provider] - Forms: ED Department Discharge Additional Instructions: As discussed unclear etiology of recent abdominal pain that has since resolved. This may be associated with constipation. Thus we will have you take MiraLAX one capful every day with copious amounts of water and also Colace 100 mg twice a day for the next 5 days. Continue taking the MiraLAX daily with your history of constipation. Can also go home and eat some prunes since this will stimulate bowel movement. Return to the ED as needed for any new or worsening symptoms. Follow-up with your PCP as needed for reevaluation. - My Orders Last 24 Hours: My Active Orders 04/19/17 20:06 Peripheral IV Care [RC] . DIRECTED Abdomen 2V AP Flat Upright [CR] Stat - Assessment/Plan Last 24 Hours: My Active Orders 04/19/17 20:06 Peripheral IV Care [RC] . DIRECTED Abdomen 2V AP Flat Upright [CR] Stat
[2017-04-19] MEDS ORDERED: Sodium Chloride 0.9% 1,000 ML IV SCH (20:15)
== END 2017-04-19 20:32 | disposition home or self-care (01) ==
LOC: JD.ED 19:50
DX: R10.31 Right lower quadrant pain (principal); E78.00 Pure hypercholesterolemia, unspecified; I12.9 Hypertensive chronic kidney disease with stage 1 through stage 4 chronic kidney disease, or unspecified chronic kidney disease; N18.9 Chronic kidney disease, unspecified; Z88.8 Allergy status to other drugs, medicaments and biological substances; Z79.82 Long term (current) use of aspirin; Z79.899 Other long term (current) drug therapy
CPT/HCPCS: 99284

== ENCOUNTER 2018-01-28 00:53 | Emergency (ER) | payer MEDICARE, OTHER ==
--- NOTE | 2018-01-28 01:09 | EDM.PDOC ---
ED HPI GENERAL MEDICAL PROBLEM - General Chief Complaint: Cardiovascular Problem Stated Complaint: HEART BEATING STRANGE RECENT MEDICINE CHANGE Time Seen by Provider: 01/28/18 01:05 - History of Present Illness INITIAL COMMENTS - FREE TEXT/NARRATIVE: 87-year-old female presents emergency room with palpitations. Patient feels that her heart was racing pretty fast she did not turn count it. She did not have any chest pain or chest pressure with this no breathing difficulties or shortness of breath no nausea no vomiting no referred pain. Patient has not had problems like this in the past. Recently the patient's atenolol was decreased from 50 mg a day to 25 mg a day. Other than this she has not had any medication changes. This episode lasted 20-30 minutes resolved on its own. She is symptom-free at this time - Related Data Allergies Allergy/AdvReac Type Severity Reaction Status Date / Time atorvastatin [From Lipitor] Allergy Cannot Verified 04/19/17 20:05 Remember lisinopril Allergy Cannot Verified 04/19/17 20:05 Remember Home Meds: Home Meds Atenolol 25 mg PO DAILY 12/30/15 [History] Isosorbide Mononitrate [Imdur] 60 mg PO DAILY 12/30/15 [History] Simvastatin [Zocor] 5 mg PO BEDTIME 12/30/15 [History] Diltiazem IR [Cardizem] 60 mg PO Q12HR #60 tablet 01/01/16 [Rx] Acetaminophen 500 mg PO Q4H PRN 10/09/16 [History] Calcium Carb/D3/Magnesium/Zinc [Adelfo Mag Zinc + D3] 1 tab PO DAILY 10/09/16 [ History] Cranberry Conc/Ascorbic Acid [Cranberry Urinary Comfort Sfgl] 1 tab PO DAILY [History] Multivits,Th w-Fe,Other Min [Complete Multivitamin] 1 tab PO DAILY 10/09/16 [ History] Potassium Chloride [Klor-Con Sprinkle] 10 meq PO DAILY 10/09/16 [History] Allopurinol [Zyloprim] 300 mg PO DAILY 01/28/18 [History] Potassium Chloride [Klor-Con M20] 20 meq PO Q12H #6 tab.er 01/28/18 [Rx] Past Medical History HEENT History: Reports: Impaired Vision, Other (See Below) Other HEENT History: wears glasses Cardiovascular History: Reports: Arrhythmia, High Cholesterol, Hypertension Gastrointestinal History: Reports: GERD Genitourinary History: Reports: Chronic Renal Insuffiency 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 Endocrine/Metabolic History: Reports: Other (See Below) Other Endocrine/Metabolic History: daughter states that pt is "pre-diabetic." Oncologic (Cancer) History: Reports: Basal Cell Carcinoma, Other (See Below) Other Oncologic History: skin cancer Dermatologic History: Reports: Other (See Below) Other Dermatologic History: skin cancer - Infectious Disease History Infectious Disease History: Reports: Measles - Past Surgical History HEENT Surgical History: Reports: Cataract Surgery, Tonsillectomy Social & Family History - Family History Family Medical History: Unobtainable - Caffeine Use Caffeine Use: Reports: None Other Caffeine Use: occasional cup of coffee daily ED ROS GENERAL - Review of Systems Review Of Systems: See Below Constitutional: Denies: Fever, Chills HEENT: Reports: No Symptoms Respiratory: Reports: No Symptoms Cardiovascular: Reports: Palpitations. Denies: Chest Pain GI/Abdominal: Reports: No Symptoms : Reports: No Symptoms Skin: Reports: No Symptoms Neurological: Reports: No Symptoms Psychiatric: Reports: No Symptoms ED EXAM, GENERAL - Physical Exam Exam: See Below Exam Limited By: No Limitations General Appearance: Alert, No Apparent Distress Head: Atraumatic, Normocephalic Neck: Normal Inspection, Supple, Non-Tender, Full Range of Motion Respiratory/Chest: No Respiratory Distress, Lungs Clear, Normal Breath Sounds Cardiovascular: Regular Rate, Rhythm, No Edema, No Murmur GI/Abdominal: Normal Bowel Sounds, Soft, Non-Tender Back Exam: Normal Inspection. No: CVA Tenderness (L), CVA Tenderness (R) Extremities: Normal Inspection, Other (2+ pitting edema she says this is normal for her) EKG INTERPRETATION EKG Date: 01/28/18 Rhythm: NSR [place]: LAD-Left [place] Deviation P-Wave: Present QRS: Normal ST-T: Normal QT: Prolonged MD/PQ Interval: Normal Comparison: No Change EKG Interpretation Comments: Abnormal EKG no change from September 2016 she even had some QT prolongation then. Course - Vital Signs Last Recorded V/S: Last Vital Signs Temp 36.8 C 01/28/18 01:01 Pulse 89 01/28/18 01:01 Resp 17 01/28/18 01:01 BP 145/65 H 01/28/18 04:26 Pulse Ox 95 01/28/18 01:01 - Orders/Labs/Meds Orders: Active Orders 24 hr Category Date Time Status EKG Documentation Completion [RC] STAT Care 01/28/18 01:18 Active EKG Documentation Completion [RC] STAT Care 01/28/18 04:36 Active Chest 1V Frontal [CR] Stat Exams 01/28/18 01:18 Taken Labs: Laboratory Tests 01/28/18 01/28/18 Range/Units 01:30 01:30 WBC 9.79 (3.98-10.04) K/mm3 RBC 3.52 L (3.98-5.22) M/mm3 Hgb 11.5 (11.2-15.7) gm/L Hct 34.7 (34.1-44.9) % MCV 98.6 H (79.4-94.8) fl MCH 32.7 H (25.6-32.2) pg MCHC 33.1 (32.2-35.5) g/dl RDW Std Deviation 50.8 H (36.4-46.3) fL Plt Count 278 (182-369) K/mm3 MPV 9.3 L (9.4-12.3) fl Neutrophils % (Manual) 71 H (40-60) % Band Neutrophils % 0 (0-10) % Lymphocytes % (Manual) 19 L (20-40) % Atypical Lymphs % 0 % Monocytes % (Manual) 7 (2-10) % Eosinophils % (Manual) 3 (0.7-5.8) % Basophils % (Manual) 0 L (0.1-1.2) Platelet Estimate Adequate Poikilocytosis 1+ slight Anisocytosis 1+ slight Ovalocytes 1+ slight RBC Morph Comment Not Reportable Sodium 141 (136-145) mEq/L Potassium 3.3 L (3.5-5.1) mEq/L Chloride 103 (98-107) mEq/L Carbon Dioxide 28 (21-32) mEq/L Anion Gap 13.3 (5-15) BUN 20 H (7-18) mg/dL Creatinine 1.7 H (0.55-1.02) mg/dL Est Cr Clr Drug Dosing 20.98 mL/min Estimated GFR (MDRD) 28 (>60) mL/min BUN/Creatinine Ratio 11.8 L (14-18) Glucose 124 H (83-115) mg/dL Calcium 8.7 (8.5-10.1) mg/dL Magnesium 1.6 L (1.8-2.4) mg/dl Total Bilirubin 0.3 (0.2-1.0) mg/dL AST 24 (15-37) U/L ALT 19 (14-59) U/L Alkaline Phosphatase 134 H (46-116) U/L Troponin I < 0.017 (0.00-0.056) ng/mL Total Protein 6.8 (6.4-8.2) g/dl Albumin 3.2 L (3.4-5.0) g/dl Globulin 3.6 gm/dL Albumin/Globulin Ratio 0.9 L (1-2) Meds: Medications Discontinued Medications Generic Name Dose Route Start Last Admin Trade Name Freq PRN Reason Stop Dose Admin Magnesium Sulfate 2 gm/ Premix 50 mls @ 25 mls/hr 01/28/18 02:44 01/28/18 03: 06 IV 01/28/18 04:43 25 mls/hr ONETIME ONE Administration Potassium Chloride 40 meq 01/28/18 02:45 01/28/18 02:51 Klor-Con M20 PO 01/28/18 02:46 40 meq ONETIME ONE Administration - Re-Assessments/Exams Free Text/Narrative Re-Assessment/Exam: 01/28/18 05:53 Patient is done well in the emergency room her potassium was a little low she is given 40 mEq of potassium and she'll be discharged on oral potassium or magnesium was low she was given 2 g of magnesium. Follow-up EKG shows normalization of the QTC. Patient will be discharged she's remained symptom- free here in the emergency department. Departure - Departure Time of Disposition: 05:54 Disposition: Home, Self-Care 01 Clinical Impression: Palpitations, Hypomagnesemia, Hypokalemia Prescriptions: Potassium Chloride [Klor-Con M20] 20 meq PO Q12H #6 tab.er Referrals: Trinity Cisneros MD [Primary Care Provider] - Forms: ED Department Discharge Additional Instructions: Return to the emergency room with any questions problems worsening symptoms. Follow-up with your regular doctor on Saturday or . Start magnesium supplementation magnesium oxide 400 mg daily - My Orders Last 24 Hours: My Active Orders 01/28/18 01:18 EKG Documentation Completion [RC] STAT Chest 1V Frontal [CR] Stat 01/28/18 04:36 EKG Documentation Completion [RC] STAT - Assessment/Plan Last 24 Hours: My Active Orders 01/28/18 01:18 EKG Documentation Completion [RC] STAT Chest 1V Frontal [CR] Stat 01/28/18 04:36 EKG Documentation Completion [RC] STAT
[2018-01-28] MEDS ORDERED: Magnesium Sulfate/Water 2 GM in Premix Bag 1 BAG IV ONE (02:44)
[2018-01-28] MEDS ORDERED: Potassium Chloride 20 MEQ Tab.ER PO ONE (02:45)
[2018-01-28 04:27] VITALS: BP 145/65
--- NOTE | 2018-01-28 08:18 | CR ---
Chest: Portable view of the chest was obtained. Comparison: Prior chest x-ray 10/06/16. Heart size and mediastinum are within normal limits. Atherosclerotic calcification is noted within the aortic arch. Lungs are clear with no acute parenchymal densities. Scoliosis and degenerative change is noted within the spine. Impression: 1. Nothing acute is appreciated on portable chest x-ray. Diagnostic code #2
== END 2018-01-28 06:00 | disposition home or self-care (01) ==
LOC: JD.ED 00:53
DX: R00.2 Palpitations (principal); E87.6 Hypokalemia; E83.42 Hypomagnesemia; I12.9 Hypertensive chronic kidney disease with stage 1 through stage 4 chronic kidney disease, or unspecified chronic kidney disease; N18.9 Chronic kidney disease, unspecified; K21.9 Gastro-esophageal reflux disease without esophagitis; Z79.899 Other long term (current) drug therapy; Z88.8 Allergy status to other drugs, medicaments and biological substances
CPT/HCPCS: 36415; 71045; 80053; 83735; 84484; 85007; 85027; 93005; 96365; 96366; 99285; A9270; 93010; 99284-25; J3475

== ENCOUNTER 2019-07-05 19:56 | Emergency (ER) | payer MEDICARE, OTHER ==
[2019-07-05 20:03] VITALS: BP 146/74; PULSE 76
--- NOTE | 2019-07-05 20:12 | EDM.PDOC ---
ED HPI GENERAL MEDICAL PROBLEM - General Chief Complaint: Gastrointestinal Problem Stated Complaint: [facility] Time Seen by Provider: 07/05/19 20:10 - History of Present Illness INITIAL COMMENTS - FREE TEXT/NARRATIVE: 89-year-old female presents emergency room with dizziness and vomiting. Started this morning patient vomiting followed by dizziness and she's had several episodes the day she's felt weak and tired during the day. She is not any chest pain or chest pressure breathing difficulties or shortness of breath she has not any recent palpitations and she is getting weaker over time. - Related Data Allergies Allergy/AdvReac Type Severity Reaction Status Date / Time atorvastatin [From Lipitor] Allergy Cannot Verified 07/05/19 20:03 Remember lisinopril Allergy Cannot Verified 07/05/19 20:03 Remember Home Meds: Home Meds Isosorbide Mononitrate [Imdur] 60 mg PO DAILY 12/30/15 [History] Simvastatin [Zocor] 5 mg PO BEDTIME 12/30/15 [History] Diltiazem IR [Cardizem] 60 mg PO Q12HR #60 tablet 01/01/16 [Rx] Acetaminophen 500 mg PO Q4H PRN 10/09/16 [History] Multivits,Th w-Fe,Other Min [Complete Multivitamin] 1 tab PO DAILY 10/09/16 [ History] Allopurinol [Zyloprim] 300 mg PO DAILY 07/05/19 [History] Atenolol 25 mg PO DAILY 07/05/19 [History] Ondansetron [Zofran ODT] 4 mg PO Q6H PRN #8 tab.dis 07/05/19 [Rx] Potassium Chloride [Klor-Con 10] 20 meq PO DAILY 07/05/19 [History] Prevagen. 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 Endocrine/Metabolic History: Reports: Other (See Below) Other Endocrine/Metabolic History: daughter states that pt is "pre-diabetic." Oncologic (Cancer) History: Reports: Basal Cell Carcinoma, Other (See Below) Other Oncologic History: skin cancer Dermatologic History: Reports: Other (See Below) Other Dermatologic History: skin cancer - Infectious Disease History Infectious Disease History: Reports: Measles - Past Surgical History HEENT Surgical History: Reports: Cataract Surgery, Tonsillectomy GI Surgical History: Reports: Appendectomy Female Surgical History: Reports: Hysterectomy Social & Family History - Family History Family Medical History: Noncontributory - Tobacco Use Smoking Status *Q: Never Smoker - Caffeine Use Caffeine Use: Reports: Coffee Other Caffeine Use: occasional cup of coffee daily - Recreational Drug Use Recreational Drug Use: No ED ROS GENERAL - Review of Systems Review Of Systems: See Below Constitutional: Reports: No Symptoms. Denies: Fever, Chills HEENT: Reports: No Symptoms, Vertigo Cardiovascular: Reports: No Symptoms Endocrine: Reports: No Symptoms GI/Abdominal: Reports: Vomiting. Denies: Abdominal Pain, Nausea Musculoskeletal: Reports: No Symptoms Skin: Reports: No Symptoms Neurological: Reports: No Symptoms Psychiatric: Reports: No Symptoms ED EXAM, GENERAL - Physical Exam Exam: See Below Exam Limited By: No Limitations General Appearance: Alert, No Apparent Distress Eye Exam: Bilateral Eye: Normal Inspection Ears: Normal External Exam, Normal Canal, Hearing Grossly Normal, Normal TMs Nose: Normal Inspection, Normal Mucosa, No Blood Throat/Mouth: Normal Inspection, Normal Lips, Normal Teeth, Normal Gums, Normal Oropharynx, Normal Voice, No Airway Compromise Head: Atraumatic, Normocephalic Neck: Normal Inspection, Supple, Non-Tender, Full Range of Motion Respiratory/Chest: No Respiratory Distress, Lungs Clear, Normal Breath Sounds Cardiovascular: Regular Rate, Rhythm, No Edema, No Murmur GI/Abdominal: Normal Bowel Sounds, Soft, Non-Tender Back Exam: Normal Inspection, Full Range of Motion. No: CVA Tenderness (L), CVA Tenderness (R) Course - Vital Signs Last Recorded V/S: Last Vital Signs Temp 37.1 C 07/05/19 20:01 Pulse 76 07/05/19 20:01 Resp 16 07/05/19 20:01 BP 146/74 H 07/05/19 20:01 Pulse Ox 99 07/05/19 20:01 - Orders/Labs/Meds Orders: Active Orders 24 hr Category Date Time Status EKG Documentation Completion [RC] STAT Care 07/05/19 20:27 Active Potassium Chloride [Klor-Con M20] Med 07/05/19 21:38 Once 40 meq PO ONETIME ONE Medication Orders Potassium Chloride (Klor-Con M20) 40 meq PO ONETIME ONE Stop: 07/05/19 21:39 Labs: Laboratory Tests 07/05/19 07/05/19 Range/Units 20:30 20:30 WBC 7.56 (3.98-10.04) K/mm3 RBC 3.96 L (3.98-5.22) M/mm3 Hgb 13.1 D (11.2-15.7) gm/dl Hct 38.7 (34.1-44.9) % MCV 97.7 H (79.4-94.8) fl MCH 33.1 H (25.6-32.2) pg MCHC 33.9 (32.2-35.5) g/dl RDW Std Deviation 48.0 H (36.4-46.3) fL Plt Count 301 (182-369) K/mm3 MPV 9.4 (9.4-12.3) fl Neutrophils % (Manual) 59 (40-60) % Band Neutrophils % 0 (0-10) % Lymphocytes % (Manual) 38 (20-40) % Atypical Lymphs % 0 % Monocytes % (Manual) 3 (2-10) % Eosinophils % (Manual) 0 L (0.7-5.8) % Basophils % (Manual) 0 L (0.1-1.2) Platelet Estimate Adequate RBC Morph Comment Normal Sodium 142 (136-145) mEq/L Potassium 3.2 L (3.5-5.1) mEq/L Chloride 105 (98-107) mEq/L Carbon Dioxide 28 (21-32) mEq/L Anion Gap 12.2 (5-15) BUN 25 H (7-18) mg/dL Creatinine 1.5 H (0.55-1.02) mg/dL Est Cr Clr Drug Dosing 22.88 mL/min Estimated GFR (MDRD) 33 (>60) mL/min BUN/Creatinine Ratio 16.7 (14-18) Glucose 112 (83-115) mg/dL Calcium 9.3 (8.5-10.1) mg/dL Magnesium 1.7 L (1.8-2.4) mg/dl Total Bilirubin 0.5 (0.2-1.0) mg/dL AST 24 (15-37) U/L ALT 23 (14-59) U/L Alkaline Phosphatase 111 (46-116) U/L Total Protein 7.2 (6.4-8.2) g/dl Albumin 3.4 (3.4-5.0) g/dl Globulin 3.8 gm/dL Albumin/Globulin Ratio 0.9 L (1-2) Meds: Medications Generic Name Dose Route Start Last Admin Trade Name Freq PRN Reason Stop Dose Admin Potassium Chloride 40 meq 07/05/19 21:38 Klor-Con M20 PO 07/05/19 21:39 ONETIME ONE Discontinued Medications Generic Name Dose Route Start Last Admin Trade Name Freq PRN Reason Stop Dose Admin Lactated Ringer's 1,000 mls @ 999 mls/hr 07/05/19 20:20 07/05/19 20:40 Ringers, Lactated IV 07/05/19 21:20 999 mls/hr .BOLUS ONE Administration - Re-Assessments/Exams Free Text/Narrative Re-Assessment/Exam: 07/05/19 21:39 Doing much better after Zofran and liter of fluid. EKG shows no changes from her prior study in January 2018. Her potassium is low at 2.2 and her magnesium was borderline low. We'll discharge with Zofran and have her increase her potassium an additional 20 mg twice a day for 4 days and then have her restart her magnesium oxide 400 mg a day. Departure - Departure Time of Disposition: 21:40 Disposition: Home, Self-Care 01 Clinical Impression: Dizziness, Lightheadedness, Hypokalemia - Discharge Information Prescriptions: Ondansetron [Zofran ODT] 4 mg PO Q6H PRN #8 tab.dis PRN Reason: Nausea/Vomiting Referrals: PCP,Unknown [Primary Care Provider] - Forms: ED Department Discharge Additional Instructions: Turn to the emergency room with any questions problems or worsening symptoms. Increase your potassium take 2 of your 10 mEq pills twice daily for 4 days and then resume one a day. 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 Follow-up with your regular doctor in one week sooner if needed. Sepsis Event Note - Evaluation Sepsis Screening Result: No Definite Risk - Focused Exam Vital Signs: Vital Signs Temp Pulse Resp BP Pulse Ox 07/05/19 20:01 37.1 C 76 16 146/74 H 99 Date Exam was Performed: 07/05/19 Time Exam was Performed: 21:39 - My Orders Last 24 Hours: My Active Orders 07/05/19 20:27 EKG Documentation Completion [RC] STAT 07/05/19 21:38 Potassium Chloride [Klor-Con M20] 40 meq PO ONETIME ONE - Assessment/Plan Last 24 Hours: My Active Orders 07/05/19 20:27 EKG Documentation Completion [RC] STAT 07/05/19 21:38 Potassium Chloride [Klor-Con M20] 40 meq PO ONETIME ONE
[2019-07-05] MEDS ORDERED: Lactated Ringers 1,000 ML IV ONE (20:20)
[2019-07-05] MEDS ORDERED: Potassium Chloride 20 MEQ Tab.ER PO ONE (21:38)
== END 2019-07-05 22:10 | disposition home or self-care (01) ==
LOC: JD.ED 19:56
DX: R42 Dizziness and giddiness (principal); E87.6 Hypokalemia; I12.9 Hypertensive chronic kidney disease with stage 1 through stage 4 chronic kidney disease, or unspecified chronic kidney disease; N18.9 Chronic kidney disease, unspecified; E78.00 Pure hypercholesterolemia, unspecified; Z88.8 Allergy status to other drugs, medicaments and biological substances; Z79.899 Other long term (current) drug therapy
CPT/HCPCS: 36415; 80053; 83735; 85007; 85027; 87804; 93005; A9270; J7120; 93010; 96360; 99283; 99284-25

== ENCOUNTER 2019-07-06 17:00 | Emergency (ER) | payer MEDICARE, OTHER ==
[2019-07-06 17:16] VITALS: BP 130/63; PULSE 55
[2019-07-06] MEDS ORDERED: Meclizine 12.5 MG Tab PO ONE (17:58)
--- NOTE | 2019-07-06 18:01 | EDM.PDOC ---
ED HPI GENERAL MEDICAL PROBLEM - General Chief Complaint: Neurological Problem Stated Complaint: [facility] Time Seen by Provider: 07/06/19 17:46 Source of Information: Reports: Patient, EMS, Family History Limitations: Reports: No Limitations - History of Present Illness INITIAL COMMENTS - FREE TEXT/NARRATIVE: Patient is an unfortunate 89-year-old female presents to the department today via EMS with complaint of dizziness. Patient was seen here yesterday for same was discharged with Zofran. Patient reports that she continues to have dizziness reports nausea and vomiting have resolved but she has lightheaded type dizziness which is worsened when she sits or attempts to stand improves with rest but never truly alleviates. No chest pain or shortness of breath no nausea no vomiting no fevers no chills no dysuria no frequency no urgency. Patient was found to be hypokalemic and hypo-magnesium yesterday and was started on replacement for both. - Related Data Allergies Allergy/AdvReac Type Severity Reaction Status Date / Time atorvastatin [From Lipitor] Allergy Cannot Verified 07/05/19 20:03 Remember lisinopril Allergy Cannot Verified 07/05/19 20:03 Remember Home Meds: Home Meds Isosorbide Mononitrate [Imdur] 60 mg PO DAILY 12/30/15 [History] Simvastatin [Zocor] 5 mg PO BEDTIME 12/30/15 [History] Diltiazem IR [Cardizem] 60 mg PO Q12HR #60 tablet 01/01/16 [Rx] Acetaminophen 500 mg PO Q4H PRN 10/09/16 [History] Multivits,Th w-Fe,Other Min [Complete Multivitamin] 1 tab PO DAILY 10/09/16 [ History] Atenolol 25 mg PO DAILY 07/05/19 [History] Ondansetron [Zofran ODT] 4 mg PO Q6H PRN #8 tab.dis 07/05/19 [Rx] Potassium Chloride [Klor-Con 10] 20 meq PO DAILY 07/05/19 [History] Prevagen. 07/05/19 [History] allopurinoL [Zyloprim] 300 mg PO DAILY 07/05/19 [History] Past Medical History HEENT History: Reports: Impaired Vision, Other (See Below) Other HEENT History: wears glasses Cardiovascular History: Reports: Arrhythmia, High Cholesterol, Hypertension Gastrointestinal History: Reports: GERD Genitourinary History: Reports: Chronic Renal Insuffiency [employer] History: Reports: Musculoskeletal History: Reports: Fracture Neurological History: Reports: Headaches, Chronic, Other (See Below) Other Neuro History: many yrs ago had H/A's. Endocrine/Metabolic History: Reports: Other (See Below) Other Endocrine/Metabolic History: daughter states that pt is "pre-diabetic." Oncologic (Cancer) History: Reports: Basal Cell Carcinoma, Other (See Below) Other Oncologic History: skin cancer Dermatologic History: Reports: Other (See Below) Other Dermatologic History: skin cancer - Infectious Disease History Infectious Disease History: Reports: Measles - Past Surgical History HEENT Surgical History: Reports: Cataract Surgery, Tonsillectomy GI Surgical History: Reports: Appendectomy Female Surgical History: Reports: Hysterectomy Social & Family History - Family History Family Medical History: Noncontributory - Tobacco Use Smoking Status *Q: Never Smoker - Caffeine Use Caffeine Use: Reports: Coffee Other Caffeine Use: occasional cup of coffee daily ED ROS GENERAL - Review of Systems Review Of Systems: See Below Constitutional: Denies: Fever, Chills GI/Abdominal: Denies: Nausea, Vomiting Neurological: Reports: Dizziness ED EXAM, NEURO - Physical Exam Exam: See Below Exam Limited By: No Limitations General Appearance: Alert, WD/WN, Mild Distress Ears: Normal External Exam, Normal Canal, Hearing Grossly Normal, Normal TMs Nose: Normal Inspection, Normal Mucosa, No Blood Throat/Mouth: Normal Inspection, Normal Lips, Normal Teeth, Normal Gums, Normal Oropharynx, Normal Voice, No Airway Compromise Head Exam: Atraumatic, Normocephalic Respiratory/Chest: No Respiratory Distress, Lungs Clear, Normal Breath Sounds, No Accessory Muscle Use, Chest Non-Tender Cardiovascular: Normal Peripheral Pulses, Regular Rate, Rhythm, No Edema, No Gallop, No JVD, No Murmur, No Rub GI/Abdominal: Normal Bowel Sounds, Soft, Non-Tender, No Organomegaly, No Distention, No Abnormal Bruit, No Mass Neurological: Alert, Normal Mood/Affect, CN II-XII Intact, Oriented x 3 Extremities: Normal Inspection, Normal Range of Motion, Non-Tender, No Pedal Edema, Normal Capillary Refill Skin Exam: Warm, Dry, No Rash EKG INTERPRETATION EKG Date: 07/06/19 Time: 18:30 Rhythm: NSR [place]: Normal P-Wave: Present QRS: Normal ST-T: Normal QT: Normal Course - Vital Signs Last Recorded V/S: Last Vital Signs Temp 98.8 F 07/06/19 17:14 Pulse 55 L 07/06/19 17:14 Resp 20 07/06/19 17:14 BP 130/63 07/06/19 17:14 Pulse Ox 98 07/06/19 17:14 - Orders/Labs/Meds Orders: Active Orders 24 hr Category Date Time Status EKG Documentation Completion [RC] ASDIRECTED Care 07/06/19 17:58 Active UA RFX ANU AND CULT IF INDIC [URIN] Stat Lab 07/06/19 17:57 Ordered EKG 12 Lead [EK] Stat Ther 07/06/19 17:57 Ordered Labs: Laboratory Tests 07/06/19 07/06/19 Range/Units 18:25 18:25 WBC 9.49 (3.98-10.04) K/mm3 RBC 4.18 (3.98-5.22) M/mm3 Hgb 13.8 (11.2-15.7) gm/dl Hct 41.3 (34.1-44.9) % MCV 98.8 H (79.4-94.8) fl MCH 33.0 H (25.6-32.2) pg MCHC 33.4 (32.2-35.5) g/dl RDW Std Deviation 49.1 H (36.4-46.3) fL Plt Count 308 (182-369) K/mm3 MPV 9.4 (9.4-12.3) fl Neut % (Auto) 66.0 (34.0-71.1) % Lymph % (Auto) 24.0 (19.3-51.7) % Lynn % (Auto) 8.9 (4.7-12.5) % Eos % (Auto) 0.7 (0.7-5.8) Baso % (Auto) 0.3 (0.1-1.2) % Neut # (Auto) 6.26 H (1.56-6.13) K/mm3 Lymph # (Auto) 2.28 (1.18-3.74) K/mm3 Lynn # (Auto) 0.84 H (0.24-0.36) K/mm3 Eos # (Auto) 0.07 (0.04-0.36) K/mm3 Baso # (Auto) 0.03 (0.01-0.08) K/mm3 Sodium 144 (136-145) mEq/L Potassium 4.1 (3.5-5.1) mEq/L Chloride 103 (98-107) mEq/L Carbon Dioxide 27 (21-32) mEq/L Anion Gap 18.1 H (5-15) BUN 21 H (7-18) mg/dL Creatinine 1.4 H (0.55-1.02) mg/dL Est Cr Clr Drug Dosing 24.51 mL/min Estimated GFR (MDRD) 35 (>60) mL/min BUN/Creatinine Ratio 15.0 (14-18) Glucose 116 H (83-115) mg/dL Calcium 9.6 (8.5-10.1) mg/dL Total Bilirubin 0.6 (0.2-1.0) mg/dL AST 31 (15-37) U/L ALT 23 (14-59) U/L Alkaline Phosphatase 109 (46-116) U/L Troponin I 0.075 H* (0.00-0.056) ng/mL Total Protein 7.5 (6.4-8.2) g/dl Albumin 3.5 (3.4-5.0) g/dl Globulin 4.0 gm/dL Albumin/Globulin Ratio 0.9 L (1-2) Meds: Medications Discontinued Medications Generic Name Dose Route Start Last Admin Trade Name Freq PRN Reason Stop Dose Admin Meclizine HCl 12.5 mg 07/06/19 17:58 07/06/19 18:33 Antivert PO 07/06/19 17:59 12.5 mg ONETIME ONE Administration - Re-Assessments/Exams Free Text/Narrative Re-Assessment/Exam: 07/06/19 18:31 CT head "impression: #1 minimal findings with maxillary sinus which I believe are most likely incidental. #2 sinus changes as noted above. #3 no acute intracranial abnormalities identified." Free Text/Narrative Re-Assessment/Exam: 07/06/19 19:[address] Crowley at [facility] in [place] who accepts patient in transfer Departure - Departure Time of Disposition: 19:53 Disposition: DC/Tfer to Hospice-Med Fac [facility] Clinical Impression: Non-STEMI (non-ST elevated myocardial infarction), Dizziness - Discharge Information Referrals: Trinity Cisneros MD [Primary Care Provider] - Forms: ED Department Discharge Sepsis Event Note - Evaluation Sepsis Screening Result: No Definite Risk - Focused Exam Vital Signs: Vital Signs Temp Pulse Resp BP Pulse Ox 07/06/19 17:14 98.8 F 55 L 20 130/63 98 Date Exam was Performed: 07/06/19 Time Exam was Performed: 19:50 - My Orders Last 24 Hours: My Active Orders 07/06/19 17:57 UA RFX ANU AND CULT IF INDIC [URIN] Stat EKG 12 Lead [EK] Stat 07/06/19 17:58 EKG Documentation Completion [RC] ASDIRECTED - Assessment/Plan Last 24 Hours: My Active Orders 07/06/19 17:57 UA RFX ANU AND CULT IF INDIC [URIN] Stat EKG 12 Lead [EK] Stat 07/06/19 17:58 EKG Documentation Completion [RC] ASDIRECTED
--- NOTE | 2019-07-06 18:24 | CT ---
Head CT Technique: Multiple axial sections through the brain were obtained. Intravenous contrast was not utilized. Comparison: Prior head CT study of 10/09/16. Findings: Ventricles along with basal cisterns and sulci over the convexities are mildly prominent. Mild diminished density is noted within periventricular white matter compatible with small vessel ischemic demyelination change. Minimal basal ganglia calcification is seen which can be present in a patient of this age. No other abnormal parenchymal densities are seen. No evidence of intracranial hemorrhage. No midline shift or mass effect is seen. Bone window settings were reviewed which shows probable small retention cysts within the left maxillary sinus and mild mucosal thickening within right maxillary sinus. No air-fluid levels are seen. No acute calvarial abnormality is appreciated. Visualized mastoid sinuses are clear. Impression: 1. Minimal findings within the maxillary sinuses which I believe are most likely incidental. 2. Senescent changes as noted above. 3. No acute intracranial abnormality is identified. Diagnostic code #2 This report was dictated in [place] Standard Time
[2019-07-06] MEDS ORDERED: Aspirin 325 MG Tab.EC PO ONE (19:55)
[2019-07-06] MEDS ORDERED: Enoxaparin 80 MG/0.8 ML Syringe SUBCUT ONE (20:03)
== END 2019-07-06 21:20 | disposition hospice, inpatient (51) ==
LOC: SUPCPDRO 17:00 → JD.ED 17:00
DX: I21.4 Non-ST elevation (NSTEMI) myocardial infarction (principal); I10 Essential (primary) hypertension; Z88.8 Allergy status to other drugs, medicaments and biological substances; Z79.899 Other long term (current) drug therapy
CPT/HCPCS: 36415; 70450; 80053; 81001; 84484; 85025; 87086; 87088; 87186; 93005; 96372; 99285; A9270; J1650; 93010; 99284

== ENCOUNTER 2019-08-30 17:06 | Emergency (ER) | payer MEDICARE, OTHER ==
[2019-08-30] MEDS ORDERED: Ondansetron 4 MG/2 ML SDV IVPUSH ONE (18:02)
[2019-08-30] MEDS ORDERED: Sodium Chloride 0.9% 1,000 ML IV SCH (18:15)
--- NOTE | 2019-08-30 18:50 | EDM.PDOC ---
ED HPI GENERAL MEDICAL PROBLEM - General Chief Complaint: Abdominal Pain Stated Complaint: LOW RT SIDE ABD PAIN Time Seen by Provider: 08/30/19 17:59 Source of Information: Reports: Patient, RN Notes Reviewed History Limitations: Reports: No Limitations - History of Present Illness INITIAL COMMENTS - FREE TEXT/NARRATIVE: Patient is an 89-year-old female who presents to the ED for the evaluation of lower right abdominal pain. Patient states that she is not really been feeling 100% since Saturday. She had an episode of dizziness, states she did not have any sort of loss of consciousness nor fall. She did lower herself to the floor when she felt dizzy, and also did take some meclizine which seemed to help the dizziness. Patient states she is having some mild nausea but no vomiting at this time. She is complaining of an area of tenderness to her right lower abdomen that is very specific. She states she has had an appendectomy, this was done in an open fashion as this was done many years ago, she has had a hysterectomy with also a bladder sling placed. There is only pain when the patient palpates the right lower quadrant. She notes she did have a bowel movement yesterday as well. She is not having any dysuria, urinary urgency or frequency. States that she does have her appetite and is able to eat, and feels hungry. Patient's primary care provider is Dr. Cisneros. The patient denies any pain into her hip. Other Treatments CLOSING SUPERVISOR: none Right Lower Abdomen Pain Score (Numeric/FACES): 6 - Related Data Allergies Allergy/AdvReac Type Severity Reaction Status Date / Time atorvastatin [From Lipitor] Allergy Cannot Verified 07/05/19 20:03 Remember lisinopril Allergy Cannot Verified 07/05/19 20:03 Remember Home Meds: Home Meds Isosorbide Mononitrate [Imdur] 60 mg PO DAILY 12/30/15 [History] Simvastatin [Zocor] 5 mg PO BEDTIME 12/30/15 [History] Diltiazem IR [Cardizem] 60 mg PO Q12HR #60 tablet 01/01/16 [Rx] Acetaminophen 325 mg PO Q4H PRN 10/09/16 [History] Multivits,Th w-Fe,Other Min [Complete Multivitamin] 1 tab PO DAILY 10/09/16 [ History] Ondansetron [Zofran ODT] 4 mg PO Q6H PRN #8 tab.dis 07/05/19 [Rx] Potassium Chloride [Klor-Con 10] 20 meq PO DAILY 07/05/19 [History] Prevagen. 1 tab PO DAILY 07/05/19 [History] allopurinoL [Zyloprim] 300 mg PO DAILY 07/05/19 [History] atenoloL [Atenolol] 25 mg PO DAILY 07/05/19 [History] Aspirin [Halfprin] 81 mg PO DAILY 08/30/19 [History] Furosemide [Lasix] 40 mg PO DAILY 08/30/19 [History] Magnesium Oxide 250 mg PO DAILY 08/30/19 [History] Meclizine [Antivert] 12.5 mg PO ASDIRECTED PRN 08/30/19 [History] Omeprazole 20 mg PO DAILY 08/30/19 [History] cephALEXin [Cephalexin] 500 mg PO BID #10 capsule 08/30/19 [Rx] Past Medical History HEENT History: Reports: Impaired Vision, Other (See Below) Other HEENT History: wears glasses Cardiovascular History: Reports: Arrhythmia, High Cholesterol, Hypertension Gastrointestinal History: Reports: GERD Genitourinary History: Reports: Chronic Renal Insuffiency [employer] History: Reports: Musculoskeletal History: Reports: Fracture Neurological History: Reports: Headaches, Chronic, Other (See Below) Other Neuro History: many yrs ago had H/A's. Endocrine/Metabolic History: Reports: Other (See Below) Other Endocrine/Metabolic History: daughter states that pt is "pre-diabetic." Oncologic (Cancer) History: Reports: Basal Cell Carcinoma, Other (See Below) Other Oncologic History: skin cancer Dermatologic History: Reports: Other (See Below) Other Dermatologic History: skin cancer - Infectious Disease History Infectious Disease History: Reports: Measles - Past Surgical History HEENT Surgical History: Reports: Cataract Surgery, Tonsillectomy GI Surgical History: Reports: Appendectomy Female Surgical History: Reports: Hysterectomy Social & Family History - Family History Family Medical History: Noncontributory - Tobacco Use Smoking Status *Q: Never Smoker - Caffeine Use Caffeine Use: Reports: Soda, Tea Other Caffeine Use: occasional cup of coffee daily - Recreational Drug Use Recreational Drug Use: No ED ROS GENERAL - Review of Systems Review Of Systems: See Below Constitutional: Denies: Fever, Chills Respiratory: Denies: Shortness of Breath, Cough Cardiovascular: Denies: Chest Pain GI/Abdominal: Reports: Abdominal Pain (RLQ point tenderness), Nausea. Denies: Constipation, Diarrhea, Decreased Appetite, Vomiting : Denies: Dysuria, Flank Pain, Frequency, Urgency Neurological: Reports: Dizziness (1 episdoe saturday, but no complaints of dizziness now.) ED EXAM, GI/ABD - Physical Exam Exam: See Below Exam Limited By: No Limitations General Appearance: Alert, WD/WN, No Apparent Distress Eyes: Bilateral: Normal Appearance Ears: Normal External Exam Nose: Normal Inspection Throat/Mouth: Normal Inspection, Normal Lips, Normal Teeth, Normal Gums, Normal Oropharynx, Normal Voice, No Airway Compromise Head: Atraumatic, Normocephalic Neck: Normal Inspection Respiratory/Chest: No Respiratory Distress, Lungs Clear, Normal Breath Sounds, No Accessory Muscle Use, Chest Non-Tender Cardiovascular: Normal Peripheral Pulses, Regular Rate, Rhythm, No Murmur GI/Abdominal Exam: Normal Bowel Sounds, Soft, No Distention, No Mass, Tender ( RLQ over appy scar, midline area) Extremities: Normal Inspection, Normal Capillary Refill Neurological: Alert, Oriented, Normal Cognition, No Motor/Sensory Deficits Psychiatric: Normal Affect, Normal Mood Skin Exam: Warm, Dry, Intact, Normal Color, No Rash Course - Vital Signs Last Recorded V/S: Last Vital Signs Temp 98.2 F 08/30/19 20:39 Pulse 60 08/30/19 20:39 Resp 18 08/30/19 20:39 BP 110/64 08/30/19 20:39 Pulse Ox 96 08/30/19 20:39 - Orders/Labs/Meds Orders: Active Orders 24 hr Category Date Time Status CULTURE URINE [RM] Routine Lab 08/30/19 20:22 Ordered Sodium Chloride 0.9% [Normal Saline] 1,000 ml Med 08/30/19 18:15 Active IV ASDIRECTED Medication Orders Sodium Chloride (Normal Saline) 1,000 mls @ 999 mls/hr IV ASDIRECTED ARJUN Last Admin: 08/30/19 19:02 Dose: 999 mls/hr Labs: Laboratory Tests 08/30/19 08/30/19 08/30/19 Range/Units 18:38 19:00 19:00 WBC 9.08 (3.98-10.04) K/mm3 RBC 3.52 L (3.98-5.22) M/mm3 Hgb 11.6 D (11.2-15.7) gm/dl Hct 35.3 (34.1-44.9) % MCV 100.3 H (79.4-94.8) fl MCH 33.0 H (25.6-32.2) pg MCHC 32.9 (32.2-35.5) g/dl RDW Std Deviation 48.4 H (36.4-46.3) fL Plt Count 336 (182-369) K/mm3 MPV 9.4 (9.4-12.3) fl Neutrophils % (Manual) 65 H (40-60) % Band Neutrophils % 0 (0-10) % Lymphocytes % (Manual) 14 L (20-40) % Atypical Lymphs % 11 % Monocytes % (Manual) 7 (2-10) % Eosinophils % (Manual) 3 (0.7-5.8) % Basophils % (Manual) 0 L (0.1-1.2) Platelet Estimate Adequate Plt Morphology Comment Normal Macrocytosis 1+ slight Stomatocytes Few RBC Morph Comment Not Reportable Sodium 140 (136-145) mEq/L Potassium 3.3 L (3.5-5.1) mEq/L Chloride 101 (98-107) mEq/L Carbon Dioxide 29 (21-32) mEq/L Anion Gap 13.3 (5-15) BUN 21 H (7-18) mg/dL Creatinine 1.7 H (0.55-1.02) mg/dL Est Cr Clr Drug Dosing 19.37 mL/min Estimated GFR (MDRD) 28 (>60) mL/min BUN/Creatinine Ratio 12.4 L (14-18) Glucose 135 H (83-115) mg/dL Calcium 8.5 (8.5-10.1) mg/dL Total Bilirubin 0.4 (0.2-1.0) mg/dL AST 22 (15-37) U/L ALT 22 (14-59) U/L Alkaline Phosphatase 104 (46-116) U/L Total Protein 7.1 (6.4-8.2) g/dl Albumin 3.3 L (3.4-5.0) g/dl Globulin 3.8 gm/dL Albumin/Globulin Ratio 0.9 L (1-2) Urine Color Yellow (Yellow) Urine Appearance Clear (Clear) Urine pH 5.0 (5.0-8.0) Ur Specific [place] 1.020 (1.005-1.030) Urine Protein Negative (Negative) Urine Glucose (UA) Negative (Negative) Urine Ketones Negative (Negative) Urine Occult Blood Negative (Negative) Urine Nitrite Negative (Negative) Urine Bilirubin Negative (Negative) Urine Urobilinogen 0.2 (0.2-1.0) Ur Leukocyte Esterase 2+ H (Negative) U Hyaline Cast (Auto) 0-5 (0-5) /lpf Urine RBC Not seen (0-5) /hpf Urine WBC 5-10 H (0-5) /hpf Ur Epithelial Cells 0-5 (0-5) /hpf Urine Bacteria Many H (FEW) /hpf Urine Mucus Not seen (FEW) /hpf Meds: Medications Generic Name Dose Route Start Last Admin Trade Name Freq PRN Reason Stop Dose Admin Sodium Chloride 1,000 mls @ 999 mls/hr 08/30/19 18:15 08/30/19 19:02 Normal Saline IV 999 mls/hr ASDIRECTED ARJUN Administration Discontinued Medications Generic Name Dose Route Start Last Admin Trade Name Freq PRN Reason Stop Dose Admin Cephalexin 500 mg 08/30/19 21:01 Keflex PO 08/30/19 21:02 ONETIME ONE Diatrizoate Meglum/Diatrizoate Sod 60 ml 08/30/19 19:55 Gastrografin 37% PO 08/30/19 19:56 ONETIME ONE Magnesium Citrate 296 ml 08/30/19 21:02 Citrate Of Magnesia PO 08/30/19 21:03 ONETIME ONE Ondansetron HCl 4 mg 08/30/19 18:02 08/30/19 19:03 Zofran IVPUSH 08/30/19 18:03 4 mg ONETIME ONE Administration - Re-Assessments/Exams Free Text/Narrative Re-Assessment/Exam: 08/30/19 18:51 Patient presents to the ED for right lower quadrant tenderness. This is very specific to one area, I am questioning if she might have developed a hernia to the area, as she is not having other sick-like symptoms that would suggest something more ominous. Nonetheless I did order a UA, CBC, CMP, 4 mg Zofran for nausea management, patient will get an abdomen pelvis CT with oral and IV contrast for further evaluation. Departure - Departure Time of Disposition: 21:03 Disposition: Home, Self-Care 01 Condition: Fair Clinical Impression: RLQ abdominal pain UTI (urinary tract infection) Qualifiers: Urinary tract infection type: acute cystitis Hematuria presence: without hematuria Qualified Code(s): N30.00 - Acute cystitis without hematuria Constipation Qualifiers: Constipation type: other constipation type Qualified Code(s): K59.09 - Other constipation - Discharge Information *PRESCRIPTION DRUG MONITORING PROGRAM REVIEWED*: No *COPY OF PRESCRIPTION DRUG MONITORING REPORT IN PATIENT RENEE: No Prescriptions: cephALEXin [Cephalexin] 500 mg PO BID #10 capsule Instructions: Constipation, Adult, [id number], Urinary Tract Infection, Adult , [id number] Referrals: Trinity Cisneros MD [Primary Care Provider] - Forms: ED Department Discharge Additional Instructions: You have been evaluated in the ED for your RLQ abdominal pain. Your urinalysis was consistent with an acute urinary tract infection. Your urine was sent for culture, and you will be notified if you should need a change in your antibiotic. This may take up to 48 hours to result. You have been given a prescription for Cephalexin, 500 mg 1 tablet 2 times a day for 5 days. This has been electronically sent to the [facility] pharmacy located by [facility]. Please increase your oral fluid intake and try to stay adequately hydrated. Your CT demonstrated no obvious abnormality that would be causing you pain in your right lower quadrant at this time. Your abdominal pain could be due to the suspected UTI. Your CT also did demonstrate that you had quite a bit of stool throughout your colon. The oral contrast you received at today's visit which should help provide a good bowel cleanse, and you were given a bottle of magnesium citrate. Please take one quarter bottle in the morning, and if you do not have results in 3 to 4 hours, you may repeat with the next quarter bottle and so forth until you have a rather large bowel movement. Please keep your appointment with your primary care provider for this week and make her aware that you were evaluated in the ER tonight for this abdominal pain. Please return to the ED if your symptoms change or worsen. Sepsis Event Note - Focused Exam Vital Signs: Vital Signs Temp Pulse Resp BP Pulse Ox 08/30/19 20:39 98.2 F 60 18 110/64 96 Date Exam was Performed: 08/30/19 Time Exam was Performed: 21:03 - My Orders Last 24 Hours: My Active Orders 08/30/19 18:15 Sodium Chloride 0.9% [Normal Saline] 1,000 ml IV ASDIRECTED 08/30/19 20:22 CULTURE URINE [RM] Routine - Assessment/Plan Last 24 Hours: My Active Orders 08/30/19 18:15 Sodium Chloride 0.9% [Normal Saline] 1,000 ml IV ASDIRECTED 08/30/19 20:22 CULTURE URINE [RM] Routine
[2019-08-30] MEDS ORDERED: Diatrizoate Meglumine/Diatrizoate Sodium 37% 120 ML Bottle PO ONE (19:55)
--- NOTE | 2019-08-30 20:38 | CT ---
CT abdomen and pelvis Technique: Multiple axial sections were obtained without intravenous contrast. Oral contrast given. Comparison: No prior abdominal imaging is available. Findings: Fairly large hiatal hernia is noted. Visualized lung bases show nothing acute. Noncontrast appearance of the liver shows no discrete abnormality. Spleen shows no focal abnormality. Cyst is noted within the left kidney measuring 3.0 cm in size. Kidneys show no abnormal calcifications or hydronephrosis. Adrenal glands show no nodule. Pancreas is atrophied. Gallbladder contains no calcified gallstones. Aorta and iliac vessels shows diffuse atherosclerotic calcification. No retroperitoneal adenopathy is seen. Diverticuli are seen within the sigmoid and descending colon without inflammatory change of diverticulitis. No free fluid is seen. No pelvic mass or adenopathy is appreciated. Bone window settings were reviewed which shows scattered degenerative change within the spine. No acute osseous finding is appreciated. Impression: 1. Nonacute findings as described above. 2. Nothing acute is definitely appreciated on noncontrast CT study of the abdomen and pelvis. Diagnostic code #2 Study was dictated in [place] Standard Time
[2019-08-30 20:39] VITALS: BP 110/64; PULSE 60
[2019-08-30] MEDS ORDERED: Cephalexin 500 MG Cap PO ONE (21:01)
[2019-08-30] MEDS ORDERED: Magnesium Citrate Solution 296 ML Bottle PO ONE (21:02)
== END 2019-08-30 21:20 | disposition home or self-care (01) ==
LOC: JD.ED 17:06
DX: K59.09 Other constipation (principal); N30.00 Acute cystitis without hematuria; I12.9 Hypertensive chronic kidney disease with stage 1 through stage 4 chronic kidney disease, or unspecified chronic kidney disease; N18.9 Chronic kidney disease, unspecified; E78.00 Pure hypercholesterolemia, unspecified; K21.9 Gastro-esophageal reflux disease without esophagitis; Z88.8 Allergy status to other drugs, medicaments and biological substances; Z79.82 Long term (current) use of aspirin; Z79.899 Other long term (current) drug therapy
CPT/HCPCS: 36415; 74176; 80053; 81001; 85007; 85027; 87086; 87088; 87186; 87804; 96361; 96374; 99284; A9270; J2405; J7030; Q9963; 99283

== ENCOUNTER 2019-11-14 19:56 | Emergency (ER) | payer MEDICARE, OTHER ==
[2019-11-14 20:16] VITALS: BP 145/53; PULSE 64
--- NOTE | 2019-11-14 21:28 | EDM.PDOC ---
ED HPI GENERAL MEDICAL PROBLEM - General Chief Complaint: Abdominal Pain Stated Complaint: RIGHT SIDE LOWER ABDOMINAL PAIN Time Seen by Provider: 11/14/19 20:16 Source of Information: Reports: Patient History Limitations: Reports: No Limitations - History of Present Illness INITIAL COMMENTS - FREE TEXT/NARRATIVE: This is an 89-year-old female who comes in tonight because she is having some right lower quadrant abdominal pain. She says when she lies down flat it does not seem to bother her but if she pushes on it or if she raises her leg or tries to walk that is when it seems to bother her. She has a history of an appendectomy and hysterectomy. She denies any trauma to her lower abdomen denies any urinary symptoms denies any fever or chills she has had no nausea vomiting or diarrhea. She does have a history of constipation and she has to take medications for that on a continual basis. Is because of the pain and she is worried does not know why she is hurting. Right Lower Abdomen Pain Score (Numeric/FACES): 6 - Related Data Allergies Allergy/AdvReac Type Severity Reaction Status Date / Time atorvastatin [From Lipitor] Allergy Cannot Verified 11/14/19 20:16 Remember lisinopril Allergy Cannot Verified 11/14/19 20:16 Remember Home Meds: Home Meds Isosorbide Mononitrate [Imdur] 60 mg PO DAILY 12/30/15 [History] Simvastatin [Zocor] 5 mg PO BEDTIME 12/30/15 [History] Diltiazem IR [Cardizem] 60 mg PO Q12HR #60 tablet 01/01/16 [Rx] Acetaminophen 325 mg PO Q4H PRN 10/09/16 [History] Multivits,Th w-Fe,Other Min [Complete Multivitamin] 1 tab PO DAILY 10/09/16 [ History] Ondansetron [Zofran ODT] 4 mg PO Q6H PRN #8 tab.dis 07/05/19 [Rx] Potassium Chloride [Klor-Con 10] 20 meq PO DAILY 07/05/19 [History] Prevagen. 1 tab PO DAILY 07/05/19 [History] allopurinoL [Zyloprim] 300 mg PO DAILY 07/05/19 [History] atenoloL [Atenolol] 25 mg PO DAILY 07/05/19 [History] Aspirin [Halfprin] 81 mg PO DAILY 08/30/19 [History] Furosemide [Lasix] 40 mg PO DAILY 08/30/19 [History] Magnesium Oxide 250 mg PO DAILY 08/30/19 [History] Meclizine [Antivert] 12.5 mg PO ASDIRECTED PRN 08/30/19 [History] Omeprazole 20 mg PO DAILY 08/30/19 [History] cephALEXin [Cephalexin] 500 mg PO BID #10 capsule 08/30/19 [Rx] Past Medical History HEENT History: Reports: Impaired Vision, Other (See Below) Other HEENT History: wears glasses Cardiovascular History: Reports: Arrhythmia, High Cholesterol, Hypertension Gastrointestinal History: Reports: GERD Genitourinary History: Reports: Chronic Renal Insuffiency [employer] History: Reports: Musculoskeletal History: Reports: Fracture Neurological History: Reports: Headaches, Chronic, Other (See Below) Other Neuro History: many yrs ago had H/A's. Endocrine/Metabolic History: Reports: Other (See Below) Other Endocrine/Metabolic History: pt is "pre-diabetic." Oncologic (Cancer) History: Reports: Basal Cell Carcinoma, Other (See Below) Other Oncologic History: skin cancer Dermatologic History: Reports: Other (See Below) Other Dermatologic History: skin cancer - Infectious Disease History Infectious Disease History: Reports: Measles - Past Surgical History HEENT Surgical History: Reports: Cataract Surgery, Tonsillectomy GI Surgical History: Reports: Appendectomy Female Surgical History: Reports: Hysterectomy Social & Family History - Family History Family Medical History: Noncontributory - Tobacco Use Smoking Status *Q: Never Smoker - Caffeine Use Caffeine Use: Reports: Coffee, Soda, Tea Other Caffeine Use: occasional cup of coffee daily - Recreational Drug Use Recreational Drug Use: No ED ROS GENERAL - Review of Systems Review Of Systems: See Below Constitutional: Denies: Fever, Chills HEENT: Reports: No Symptoms Respiratory: Denies: Shortness of Breath, Cough Cardiovascular: Denies: Chest Pain Endocrine: Reports: No Symptoms GI/Abdominal: Reports: Abdominal Pain, Constipation. Denies: Diarrhea, Nausea, Vomiting : Denies: Discharge, Dysuria Musculoskeletal: Reports: No Symptoms Skin: Reports: No Symptoms Neurological: Reports: No Symptoms Psychiatric: Reports: No Symptoms Hematologic/Lymphatic: Reports: No Symptoms ED EXAM, GI/ABD - Physical Exam Exam: See Below Exam Limited By: No Limitations General Appearance: Alert, WD/WN, No Apparent Distress Eyes: Bilateral: Normal Appearance Ears: Normal External Exam Nose: Normal Inspection Throat/Mouth: Normal Lips, Normal Voice, No Airway Compromise Head: Normocephalic Neck: Supple Respiratory/Chest: No Respiratory Distress GI/Abdominal Exam: Normal Bowel Sounds, Soft, Other (She is tender just to the right of the center of the suprapubic area, there is no masses there is no rebound, if she lays flat and does not move there is no pain, if she straight legs her right leg she has pulling sensation there but no pain, if you palpate or push that area she has pain but there is no rebound no peritoneal irritation , there is no other abdominal tenderness noted on palpation) Back Exam: Decreased Range of Motion Extremities: Normal Inspection, Normal Range of Motion Neurological: Alert, Oriented Psychiatric: Normal Affect, Normal Mood Skin Exam: Warm, Dry Course - Vital Signs Last Recorded V/S: Last Vital Signs Temp 98.0 F 11/14/19 20:13 Pulse 64 11/14/19 20:13 Resp 18 11/14/19 20:13 BP 145/53 H 11/14/19 20:13 Pulse Ox 100 11/14/19 20:13 - Orders/Labs/Meds Orders: Active Orders 24 hr Category Date Time Status KUB [Abdomen 1V Flat] [CR] Stat Exams 11/14/19 20:38 Taken UA W/MICROSCOPIC [URIN] Stat Lab 11/14/19 20:38 Stop Req Labs: Laboratory Tests 11/14/19 Range/Units 20:54 WBC 7.55 (3.98-10.04) K/mm3 RBC 3.35 L (3.98-5.22) M/mm3 Hgb 11.0 L (11.2-15.7) gm/dl Hct 33.6 L (34.1-44.9) % MCV 100.3 H (79.4-94.8) fl MCH 32.8 H (25.6-32.2) pg MCHC 32.7 (32.2-35.5) g/dl RDW Std Deviation 50.6 H (36.4-46.3) fL Plt Count 288 (182-369) K/mm3 MPV 9.9 (9.4-12.3) fl Neut % (Auto) 50.8 (34.0-71.1) % Lymph % (Auto) 35.8 (19.3-51.7) % [place] % (Auto) 10.9 (4.7-12.5) % Eos % (Auto) 2.0 (0.7-5.8) Baso % (Auto) 0.4 (0.1-1.2) % Neut # (Auto) 3.84 (1.56-6.13) K/mm3 Lymph # (Auto) 2.70 (1.18-3.74) K/mm3 [place] # (Auto) 0.82 H (0.24-0.36) K/mm3 Eos # (Auto) 0.15 (0.04-0.36) K/mm3 Baso # (Auto) 0.03 (0.01-0.08) K/mm3 - Re-Assessments/Exams Free Text/Narrative Re-Assessment/Exam: 11/14/19 21:47 I spoke to the patient regarding the x-ray that shows a lot of stool in her bowel. And that her CBC was okay. She did not give us a urinalysis and she does not want to. I believe that her problem is a pulled muscle in the lower abdomen. She was concerned she might have cancer all over her body but I reassured her I do not see that tonight. Departure - Departure Time of Disposition: 21:47 Disposition: Home, Self-Care 01 Condition: Fair Clinical Impression: Strain of abdominal muscle Qualifiers: Encounter type: initial encounter Qualified Code(s): S39.011A - Strain of muscle, fascia and tendon of abdomen, initial encounter Constipation Qualifiers: Constipation type: other constipation type Qualified Code(s): K59.09 - Other constipation - Discharge Information *PRESCRIPTION DRUG MONITORING PROGRAM REVIEWED*: Not Applicable *COPY OF PRESCRIPTION DRUG MONITORING REPORT IN PATIENT RENEE: Not Applicable Instructions: Chronic Constipation, Muscle Strain, [id number] Referrals: Trinity Cisneros MD [Primary Care Provider] - Forms: ED Department Discharge Additional Instructions: Continue with your stool softeners for the constipation, be very careful about any strenuous activity but realize it when you move your right leg is going to pull on your lower abdomen and cause some soreness from the muscle being strained, follow-up with your family doctor this week for recheck and return to the ER if needed Sepsis Event Note - Evaluation Sepsis Screening Result: No Definite Risk - Focused Exam Vital Signs: Vital Signs Temp Pulse Resp BP Pulse Ox 11/14/19 20:13 98.0 F 64 18 145/53 H 100 Date Exam was Performed: 11/14/19 Time Exam was Performed: 21:47 - My Orders Last 24 Hours: My Active Orders 11/14/19 20:38 KUB [Abdomen 1V Flat] [CR] Stat UA W/MICROSCOPIC [URIN] Stat - Assessment/Plan Last 24 Hours: My Active Orders 11/14/19 20:38 KUB [Abdomen 1V Flat] [CR] Stat UA W/MICROSCOPIC [URIN] Stat
--- NOTE | 2019-11-15 14:02 | CR ---
Abdomen: Supine view of the abdomen was obtained. Comparison: No prior abdominal x-ray. Slight degenerative change is noted within the spine with vascular calcification. Bowel gas pattern appears normal. Mild joint space narrowing is noted within both hips. Bony structures are osteopenic. Impression: 1. Findings as noted above. 2. Nothing acute is appreciated on supine abdominal x-ray. Diagnostic code #2 This report was dictated in MDT
== END 2019-11-14 22:00 | disposition home or self-care (01) ==
LOC: JD.ED 19:56
DX: K59.09 Other constipation (principal); S39.011A Strain of muscle, fascia and tendon of abdomen, initial encounter; E78.00 Pure hypercholesterolemia, unspecified; I10 Essential (primary) hypertension; K21.9 Gastro-esophageal reflux disease without esophagitis; I12.9 Hypertensive chronic kidney disease with stage 1 through stage 4 chronic kidney disease, or unspecified chronic kidney disease; N18.9 Chronic kidney disease, unspecified; Z79.82 Long term (current) use of aspirin; Z79.899 Other long term (current) drug therapy; Z88.8 Allergy status to other drugs, medicaments and biological substances; X58.XXXA Exposure to other specified factors, initial encounter
CPT/HCPCS: 36415; 74018; 74018-26; 85025; 99283; 99284-25